=== PATIENT | female | born 1990 | race Caucasian/White ===

== ENCOUNTER 2016-07-23 21:53 | Emergency (ER) | payer BC ==
[2016-07-23 22:10] VITALS: RESP 16
[2016-07-23] MEDS ORDERED: SODIUM CHLORIDE 0.9% 1,000 ML IV ONE (22:13)
[2016-07-23] MEDS ORDERED: SODIUM CHLORIDE 0.9% 500 ML IV ONE (22:13)
[2016-07-23] MEDS ORDERED: METOCLOPRAMIDE 5 MG/ML 2 ML VIAL IVP STA (22:14)
--- NOTE | 2016-07-23 22:16 | ED ---
General Adult HPI - General Chief complaint: Nausea/Vomiting/Diarrhea Stated complaint: 13 weeks preg, dehydration, vomiting Time Seen by Provider: 07/23/16 22:00 Source: patient, RN notes reviewed Mode of arrival: ambulatory Limitations: no limitations - History of Present Illness Initial comments: This is a 26-year-old female who is a patient states she is 13 weeks . Patient states she's having a lot of nausea and vomiting with the which she did not have previous . Patient states she's barely keeping anything down. Patient states she has Zofran at home but is unable to keep it down. Patient states she is eating and drinking every day at some point in time without vomiting but the rest of the day she spends vomiting. Patient denies any abdominal pain. Patient denies any vaginal bleeding or discharge. Patient denies any recent fever or chills. Patient denies any headache patient denies numbness weakness patient denies any lightheadedness or dizziness. Patient denies any difficulty breathing shortness of breath. Patient denies any leg swelling or calf tenderness. - Related Data Home Medications Medication Instructions Recorded Confirmed Ondansetron HCl [Zofran] 4 mg PO Q8H PRN 07/23/16 07/23/16 Pnv with Ca,No.72/Iron/FA 1 tab PO DAILY 07/23/16 07/23/16 [ Plus Tablet] Previous Rx's Medication Instructions Recorded Metoclopramide [Reglan] 10 mg PO Q6H PRN 10 Days 07/23/16 Allergies Allergy/AdvReac Type Severity Reaction Status Date / Time Milk Containing Products Allergy Unknown Verified 07/23/16 22:15 [Dairy] Review of Systems ROS Statement: Those systems with pertinent positive or pertinent negative responses have been documented in the HPI. ROS Other: All systems not noted in ROS Statement are negative. Past Medical History Past Medical History: Asthma History of Any Multi-Drug Resistant Organisms: None Reported Past Surgical History: No Surgical Hx Reported Additional Past Surgical History / Comment(s): left knee times 2, nose surgery Past Psychological History: Anxiety, Depression Smoking Status: Never smoker Past Alcohol Use History: Occasional Past Drug Use History: None Reported General Exam - General Exam Comments Initial Comments: GENERAL: Patient is well-developed and well-nourished. Patient is nontoxic and well- hydrated and is in mild distress. ENT: Neck is soft and supple. No significant lymphadenopathy is noted. Oropharynx is clear. Dry mucous membranes. Neck has full range of motion without eliciting any pain. EYES: The sclera were anicteric and conjunctiva were pink and moist. Extraocular movements were intact and pupils were equal round and reactive to light. Eyelids were unremarkable. PULMONARY: Unlabored respirations. Good breath sounds bilaterally. No audible rales rhonchi or wheezing was noted. CARDIOVASCULAR: There is a regular rate and rhythm without any murmurs gallops or rubs. ABDOMEN: Soft and nontender with normal bowel sounds. No palpable organomegaly was noted. There is no palpable pulsatile mass. SKIN: Skin is clear with no lesions or rashes and otherwise unremarkable. NEUROLOGIC: Patient is alert and oriented x3. Cranial nerves II through XII are grossly intact. Motor and sensory are also intact. Normal speech, volume and content. Symmetrical smile. MUSCULOSKELETAL: Normal extremities with adequate strength and full range of motion. No lower extremity swelling or edema. No calf tenderness. LYMPHATICS: No significant lymphadenopathy is noted PSYCHIATRIC: Normal psychiatric evaluation. Limitations: no limitations Course Vital Signs 07/23/16 07/23/16 22:07 22:52 Temperature 98.2 F 97.9 F Pulse Rate 83 76 Respiratory 16 16 Rate Blood Pressure 130/84 112/56 O2 Sat by Pulse 97 96 Oximetry Medical Decision Making - Medical Decision Making I went back into reevaluate the patient she received a liter and a half of fluid and she states she was no longer nauseated. - Lab Data Result diagrams: 07/23/16 22:32 07/23/16 22:32 Lab Results 07/23/16 07/23/16 Range/Units 22:32 22:32 WBC 8.6 (3.8-10.6) k/uL RBC 4.52 (3.80-5.40) m/uL Hgb 13.4 (11.4-16.0) gm/dL Hct 39.0 (34.0-46.0) % MCV 86.2 (80.0-100.0) fL MCH 29.6 (25.0-35.0) pg MCHC 34.4 (31.0-37.0) g/dL RDW 13.3 (11.5-15.5) % Plt Count 229 (150-450) k/uL Neutrophils % 73 % Lymphocytes % 22 % Monocytes % 4 % Eosinophils % 1 % Basophils % 0 % Neutrophils # 6.2 (1.3-7.7) k/uL Lymphocytes # 1.9 (1.0-4.8) k/uL Monocytes # 0.3 (0-1.0) k/uL Eosinophils # 0.1 (0-0.7) k/uL Basophils # 0.0 (0-0.2) k/uL Sodium 139 (137-145) mmol/L Potassium 3.9 (3.5-5.1) mmol/L Chloride 103 (98-107) mmol/L Carbon Dioxide 22 (22-30) mmol/L Anion Gap 14 mmol/L BUN 7 (7-17) mg/dL Creatinine 0.58 (0.52-1.04) mg/dL Est GFR (MDRD) Af Amer >60 (>60 ml/min/1.73 sqM) Est GFR (MDRD) Non-Af >60 (>60 ml/min/1.73 sqM) Glucose 91 (74-99) mg/dL Calcium 9.7 (8.4-10.2) mg/dL Total Bilirubin 0.5 (0.2-1.3) mg/dL AST 15 (14-36) U/L ALT 28 (9-52) U/L Alkaline Phosphatase 97 (38-126) U/L Total Protein 7.8 (6.3-8.2) g/dL Albumin 4.3 (3.5-5.0) g/dL Disposition Clinical Impression: Hyperemesis gravidarum Disposition: HOME SELF-CARE Instructions: Hyperemesis Gravidarum (ED) Prescriptions: Metoclopramide [Reglan] 10 mg PO Q6H PRN 10 Days PRN Reason: Nausea And Vomiting Referrals: Jayla Ryan MD [Primary Care Provider] - 1-2 days Time of Disposition: 23:38
[2016-07-23 22:42] LABS: Basophils % (A) 0 %; CH 30.8; CHCM 35.9; Eosinophils # (A) 0.1 k/uL (0-0.7); Eosinophils % (A) 1 %; HDW 2.87; HGB 13.4 gm/dL (11.4-16.0); Luc # (Auto) 0.06; Luc % (Auto) 1; Lymphocytes # (A) 1.9 k/uL (1.0-4.8); Lymphocytes % (A) 22 %; MCH 29.6 pg (25.0-35.0); MCHC 34.4 g/dL (31.0-37.0); MCV 86.2 fL (80.0-100.0); Mean Platelet Volume 7.7; Monocytes # (A) 0.3 k/uL (0-1.0); Monocytes % (A) 4 %; Neutrophils # (A) 6.2 k/uL (1.3-7.7); Neutrophils % (A) 73 %; RBC 4.52 m/uL (3.80-5.40); RDW 13.3 % (11.5-15.5); WBC 8.6 k/uL (3.8-10.6); WBC (Perox) 8.58
[2016-07-23 22:51] LABS: ALT 28 U/L (9-52); AST 15 U/L (14-36); Alkaline Phosphatase 97 U/L (38-126); Anion Gap 14 mmol/L; Blood Urea Nitrogen 7 mg/dL (7-17); Calcium 9.7 mg/dL (8.4-10.2); Carbon Dioxide 22 mmol/L (22-30); Chloride 103 mmol/L (98-107); Glucose 91 mg/dL (74-99); Non-African American GFR(MDRD) >60 (>60 ml/min/1.73 sqM); Potassium 3.9 mmol/L (3.5-5.1); Sodium 139 mmol/L (137-145); Total Bilirubin 0.5 mg/dL (0.2-1.3); Total Protein 7.8 g/dL (6.3-8.2)
[2016-07-23 23:51] VITALS: BP 112/54; PULSE 77; TEMP 97
== END 2016-07-24 00:05 | disposition home or self-care (01) ==
LOC: EC 21:53
DX: O21.0 Mild hyperemesis gravidarum (principal); Z3A.13 13 weeks gestation of pregnancy; Z91.011 Allergy to milk products
CPT/HCPCS: 36415; 80053; 85025; 99284; 96374; 96361; J2765

== ENCOUNTER 2016-11-04 14:50 | Outpatient (CLI) | payer BC ==
[2016-11-04 16:19] VITALS: BP 127/74; PULSE 74; RESP 16; TEMP 97.4
== END 2016-11-04 16:05 | disposition home or self-care (01) ==
LOC: FBPOP 14:50
PROVIDERS: ATTEND Obstetrics & Gynecology
DX: O36.8130 Decreased fetal movements, third trimester, not applicable or unspecified (principal); R10.9 Unspecified abdominal pain; Z3A.28 28 weeks gestation of pregnancy
CPT/HCPCS: 59025; 99213

== ENCOUNTER 2017-01-17 17:44 | Outpatient (CLI) | payer BC ==
[2017-01-17 18:55] VITALS: BP 126/86; PULSE 77; RESP 18; TEMP 97.6
--- NOTE | 2017-01-25 14:59 | P.MSEPDOC ---
Presenting Problems - Arrival Data Date of Arrival on Unit: 01/17/17 Time of Arrival on Unit: 17:44 Mode of Transport: Wheelchair - Complaint OB-Reason for Admission/Chief Complaint: Possible Onset of Labor, Rule Out SROM Medical History - Information : 2 Para: 1 Term: 1 : 0 Abortions: Spontaneous or Elective: 0 Number of Living Children: 1 - Gestational Age Expected Date of Delivery: 01/26/17 Gestational Age by LISET (wks/days): 39 Weeks and 6 Days Review of Systems - Review of Systems Constitutional: No problems Breast: No problems ENT: No problems Cardiovascular: No problems Respiratory: No problems Gastrointestinal: No problems Genitourinary: No problems Musculoskeletal: No problems Neurological: No problems Skin: No problems Vital Signs - Temperature Temperature: 97.6 F Temperature Source: Oral - Pulse Right Brachial Pulse Rate: 77 Pulse Assessment Method: Automatic Cuff - Respirations Respiratory Rate: 18 Oxygen Delivery Method: Room Air O2 Sat by Pulse Oximetry: 98 - Blood Pressure Right Arm Blood Pressure: 126/86 Blood Pressure Mean: 99 Blood Pressure Source: Automatic Cuff Medical Screen Scoring (Pre) - Cervical Exam Dilation: 1-3 cm = 1 Membranes: Intact - Uterine Contractions Frequency: > 5 minutes apart = 1 Duration: N/A Intensity: N/A - Maternal Vital Signs Maternal Temperature: N/A Maternal Blood Pressure: N/A Signs of Preeclampsia: N/A Maternal Respirations: N/A - Maternal Trauma Maternal Trauma: N/A - Assessment Baseline FHR: 130 Heart Rate - NICHD Category: Category I (Normal) = 0 NST: Reactive Position: N/A - Total Score Total Score (Pre): 2 - Level of Risk Level of Risk: Low (0-5) Physician Notification (Pre) - Physician Notified Physician Notified Date: 01/17/17 Physician Notified Time: 18:27 Physician/Practitioner Notifed:: Dr. Ortega Spoke With: Dr. Ortega New Order Received: Yes (D/c pt to home) - Notification Comment Comment: notified on pt status, negative amnisure results, and vag exam 3cm and 60%. Physician Notification (Post) - Physician Notified Physician Notified Date: 01/17/17 Physician Notified Time: 18:27 Physician/Practitioner Notified:: Dr. Ortega Spoke With: Dr. Ortega New Order Received: Yes (D/c to home) Disposition - Disposition OB Disposition: Discharge to home Discharge Date: 01/17/17 Discharge Time: 18:35 I agree with the RN Medical Screening Exam: Yes Risk & Benefit of care provided described in d/c instruction: Yes Diagnosis: FALSE LABOR AT OR AFTER 37 COMPLETED WEEKS OF GESTATION
== END 2017-01-17 18:35 | disposition home or self-care (01) ==
LOC: FBPOP 17:44
PROVIDERS: ATTEND Obstetrics & Gynecology
DX: O47.1 False labor at or after 37 completed weeks of gestation (principal); Z3A.39 39 weeks gestation of pregnancy
CPT/HCPCS: 99213

== ENCOUNTER 2017-01-21 05:56 | Inpatient (IN) | payer BC, OTHER ==
[2017-01-21] MEDS ORDERED: CARBOPROST TROMETHAMINE 250 MCG/ML 1 ML AMP IM PRN (06:03)
[2017-01-21] MEDS ORDERED: PENICILLIN G POTASSIUM 5,000,000 UNIT in DEXTROSE 5% IN WATER 100 ML IV STA ×2 (06:03)
[2017-01-21] MEDS ORDERED: TERBUTALINE 1 MG/ML VIAL SQ PRN (06:03)
[2017-01-21] MEDS ORDERED: METHYLERGONOVINE 0.2 MG/ML 1 ML AMP IM PRN (06:03)
[2017-01-21] MEDS ORDERED: LIDOCAINE 1% (PF) 10 MG/ML (30 ML SDV) SQ PRN (06:03)
[2017-01-21] MEDS ORDERED: OXYTOCIN 10 UNIT/ML 1 ML VIAL IM PRN (06:03)
[2017-01-21 06:18] VITALS: BMI 32.1
[2017-01-21] MEDS: LACTATED RINGERS 1,000 ML IV SCH ×2 (06:33→21:33)
[2017-01-21 06:36] LABS: Basophils % (A) 0 %; CH 29.2; CHCM 34.5; Eosinophils # (A) 0.1 k/uL (0-0.7); Eosinophils % (A) 1 %; HCT 34.9 % (34.0-46.0); HDW 2.92; HGB 11.7 gm/dL (11.4-16.0); Luc # (Auto) 0.17; Luc % (Auto) 2; Lymphocytes # (A) 1.9 k/uL (1.0-4.8); Lymphocytes % (A) 21 %; MCH 28.5 pg (25.0-35.0); MCHC 33.5 g/dL (31.0-37.0); MCV 84.9 fL (80.0-100.0); Mean Platelet Volume 9.9; Monocytes # (A) 0.5 k/uL (0-1.0); Monocytes % (A) 5 %; Neutrophils # (A) 6.3 k/uL (1.3-7.7); Neutrophils % (A) 71 %; RBC 4.11 m/uL (3.80-5.40); RDW 15.2 % (11.5-15.5); WBC 8.9 k/uL (3.8-10.6); WBC (Perox) 8.86
[2017-01-21] MEDS ORDERED: OXYTOCIN 20 UNITS/1000 ML NS 1,000 ML IV SCH (06:45)
--- NOTE | 2017-01-21 08:29 | P.HPOB ---
History of Present Illness H&P Date: 01/21/17 Chief Complaint: Here for elective induction of labor with favorable multiparous cervix This is a 26-year-old white female 2 para 1001 EDC 01/26/2017 at 39-2/7 weeks' gestation. Patient presents today for induction of labor. She has been having mild irregular uterine contractions spontaneously. Fetus is been active throughout the . She denies fluid leakage or vaginal bleeding. Past medical history is significant for anxiety and depression. She has a history of asthma, on no meds. Past surgical history significant for left knee surgery and broken nose repair. Current medications Zofran 4 mg as needed, vitamin daily. ALLERGIES include gluten to which reports migraines, NO KNOWN DRUG ALLERGIES. Family history significant for thyroid cancer and hypertension. 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 Past obstetrical history is significant for positive group B strep cultures. Blood type O positive, rubella status immune. VDRL testing, hepatitis B surface antigen, urine culture, Pap smear all negative. On exam this is a pleasant white female, 5 foot 5 inches, 193 pounds, vital signs are stable and patient is afebrile. Blood pressure 127/84. The general physical exam is within normal limits. Cervix is 4 cm dilated, 60-70% effaced, -2 station, vertex presentation. Artificial amniorrhexis reveals clear fluid. heart rate is in the 140s with frequent accelerations, consistent with reactive NST. Impression: 39-2/7 weeks intrauterine , here for elective induction of labor, all signs reassuring. Plan: Close maternal and surveillance. Analgesic options are reviewed with the patient. Oxytocin per hospital protocol. Anticipate normal spontaneous vaginal delivery. Past Medical History Past Medical History: Asthma, Thyroid Disorder Additional Past Medical History / Comment(s): Anxiety and depression, Hypothyroid (not currently on meds, states it's controlled at this time, but has been diagnosed with it in the past) History of Any Multi-Drug Resistant Organisms: None Reported Past Surgical History: No Surgical Hx Reported Additional Past Surgical History / Comment(s): left knee times 2, nose surgery Past Anesthesia/Blood Transfusion Reactions: No Reported Reaction Past Psychological History: Anxiety, Depression Smoking Status: Never smoker Past Alcohol Use History: None Reported, Occasional Past Drug Use History: None Reported - Past Family History Mother Family Medical History: Hypertension Father Family Medical History: Hyperlipidemia Medications and Allergies Home Medications Medication Instructions Recorded Confirmed Type Pnv,Calcium 72/Iron/Folic Acid 1 tab PO DAILY 07/23/16 01/21/17 History [ Plus Tablet] Allergies Allergy/AdvReac Type Severity Reaction Status Date / Time Milk Containing Products Allergy Unknown Verified 01/21/17 06:02 [Dairy] Exam - Vital Signs Vital signs: Vital Signs Temp Pulse Resp BP 01/21/17 06:12 96.6 F L 89 16 127/84 Intake and Output 01/20/17 01/21/17 01/21/17 22:59 06:59 14:59 Other: Weight 87.543 kg Results Result Diagrams: 01/21/17 06:20
[2017-01-21] MEDS: PENICILLIN G POTASSIUM 2,500,000 UNIT in DEXTROSE 5% IN WATER 100 ML IV SCH ×4 (11:19→21:35)
[2017-01-21] MEDS ORDERED: BUTORPHANOL 1 MG/ML 1 ML VIAL IV PRN (12:06)
[2017-01-21] MEDS ORDERED: ACETAMINOPHEN TAB 325 MG TAB PO PRN (14:10)
[2017-01-21] MEDS ORDERED: IBUPROFEN 600 MG TAB PO PRN (14:10)
[2017-01-21] MEDS ORDERED: diphenhydrAMINE 50 MG/ML 1 ML VIAL IVP PRN ×2 (14:10)
[2017-01-21] MEDS ORDERED: BENZOCAINE/MENTHOL SPRAY 1 GM/SPRAY AEROSOL TOPICAL PRN (14:10)
[2017-01-21] MEDS ORDERED: diphenhydrAMINE 25 MG CAP PO PRN (14:10)
[2017-01-21] MEDS ORDERED: WITCH HAZEL 1 EACH MED..PAD TOPICAL PRN (14:10)
[2017-01-21] MEDS ORDERED: Acetaminophen-Codeine 300-30mg TAB PO PRN (14:10)
[2017-01-21] MEDS ORDERED: HYDROCORTISONE 2.5% RECTAL CREAM 30 GM TUBE RECTAL PRN (14:10)
[2017-01-21] MEDS ORDERED: LANOLIN CREAM 5 GM TUBE TOPICAL PRN (14:10)
[2017-01-21] MEDS ORDERED: SIMETHICONE 80 MG CHEWABLE PO PRN (14:10)
[2017-01-21] MEDS ORDERED: ZOLPIDEM 5 MG TAB PO PRN (14:10)
[2017-01-21] MEDS ORDERED: diphenhydrAMINE 50 MG CAP PO PRN (14:10)
[2017-01-21] MEDS ORDERED: diphenhydrAMINE ELIXIR 25 MG/10 ML CUP PO PRN (14:10)
--- NOTE | 2017-01-21 14:10 | P.PROBDLV ---
Vaginal Delivery Note - . Vaginal Delivery Note: This is a 26-year-old white female 2 para 1001 EDC 01/26/2017 at 39-2/7 weeks' gestation. Patient presented for induction for favorable multiparous cervix. Positive group B strep cultures are noted. Blood type is O+, rubella status immune. Please see my dictated history and physical for details. Artificial amniorrhexis revealed clear fluid. Oxytocin was started and titrated per hospital protocol. She did receive 2 doses of penicillin G per our protocol. She progressed well through the first stage of labor was judged to be complete at 1351 hrs. She then precipitously delivered a liveborn male infant with scores of 9 and 9 at one and 5 minutes respectively. There was a body cord 1 that was reduced. Per patient's request, delayed cord clamping was performed. When the pulse in the umbilical cord was completely gone, the cord was doubly clamped and ligated. Infant weighed 6 lbs. 11 oz. or 3045 g. Placenta delivered spontaneously, it was inspected and noted to be intact with trivascular cord at 1359 hrs. At this time inspection of the cervix, vagina, perineum, periurethral, and perirectal areas was performed. There are no lacerations or defects noted. Fundus is firm and in the midline, symmetric and 16 week size upon completion of delivery. Estimated blood loss 350 mL's. All sponge needle and enhancement counts are correct at the end of the procedure. Patient and her family are allowed to begin the bonding experience in the LDR. She is requesting circumcision on her infant son.
[2017-01-21] MEDS: SENNOSIDES-DOCUSATE SODIUM 1 EACH TAB PO SCH (19:38)
[2017-01-22] MEDS: SENNOSIDES-DOCUSATE SODIUM 1 EACH TAB PO SCH (07:45)
[2017-01-22 08:17] VITALS: RESP 18
--- NOTE | 2017-01-22 08:26 | P.DS ---
Providers Date of admission: 01/21/17 05:56 Expected date of discharge: 01/22/17 Attending physician: Adri Castro Primary care physician: Jayla [facility] Course: This is a 26-year-old white female 2 para 1001 EDC 01/26/2017 at 39-2/7 weeks' gestation. Patient presented for induction with favorable multiparous cervix. unremarkable, please see my dictated history and physical for details. Blood type O positive. Artificial amniorrhexis revealed clear fluid. Oxytocin was started and titrated per hospital protocol. She went on to deliver a liveborn male with scores of 9 and 9 at one and 5 minutes respectively. Infant weight 3045 g or 6 lbs. 11 oz. Perineal body was intact, no sutures were deemed necessary. Please see dictated delivery note for details. This morning the patient is doing well. She is voiding, ambulating and passing flatus without difficulty. Vital signs are stable and she is afebrile. Fundus is firm and in the midline, symmetric and 18 week size. Breast-feeding is going well. Circumcision will be performed this morning. Perineal body is clean and dry. Plan is for discharge home later today. She is reminded no intercourse, tampons or douching. She will continue taking her vitamin daily. She will use [id number] Motrin products as needed for pain, 200 mg pills, 3 every 6 hours as needed. She will call with any fevers shakes or chills, foul smelling or copious lochia, with the passage of large blood clots, with any pain not alleviated by Motrin products, or indeed with any concerns. will follow-up with fibreglass gun hand as recommended. Patient Condition at Discharge: Good Plan - Discharge Summary New Discharge Prescriptions: No Action Pnv,Calcium 72/Iron/Folic Acid [ Plus Tablet] 1 tab PO DAILY Discharge Medication List Pnv,Calcium 72/Iron/Folic Acid [ Plus Tablet] 1 tab PO DAILY 07/23/16 [ History] Follow up Appointment(s)/Referral(s): Adri Castro MD [STAFF PHYSICIAN] - 6 Weeks Discharge Disposition: HOME SELF-CARE
[2017-01-22 18:10] VITALS: BP 122/83; PULSE 77; TEMP 98.4
== END 2017-01-22 18:00 | disposition home or self-care (01) | DRG 775 ==
LOC: 4FBP 05:56
PROVIDERS: ADMIT Obstetrics & Gynecology; ATTEND Obstetrics & Gynecology
PROC: 3E033VJ Introduction of Other Hormone into Peripheral Vein, Percutaneous Approach (ICD-10-PCS; principal; 2017-01-21)
PROC: 10907ZC Drainage of Amniotic Fluid, Therapeutic from Products of Conception, Via Natural or Artificial Opening (ICD-10-PCS; principal; 2017-01-21)
PROC: 10E0XZZ Delivery of Products of Conception, External Approach (ICD-10-PCS; principal; 2017-01-21)
DX: O99.824 Streptococcus B carrier state complicating childbirth (principal); O62.3 Precipitate labor; Z37.0 Single live birth; Z3A.39 39 weeks gestation of pregnancy
CPT/HCPCS: 85025; 88307

== ENCOUNTER → 2017-07-30 | Outpatient (CLI) | payer BC, OTHER ==
[2017-07-30 19:19] LABS: Basophils % (A) 1 %; Eosinophils # (A) 0.3 k/uL (0-0.7); Eosinophils % (A) 5 %; HCT 42.7 % (34.0-46.0); HGB 14.2 gm/dL (11.4-16.0); Lymphocytes # (A) 2.4 k/uL (1.0-4.8); Lymphocytes % (A) 34 %; MCH 29.6 pg (25.0-35.0); MCHC 33.3 g/dL (31.0-37.0); MCV 88.8 fL (80.0-100.0); Mean Platelet Volume 7.6; Monocytes # (A) 0.3 k/uL (0-1.0); Monocytes % (A) 5 %; Neutrophils # (A) 3.7 k/uL (1.3-7.7); Neutrophils % (A) 54 %; Platelet Count 220 k/uL (150-450); RDW 13.9 % (11.5-15.5); WBC 6.8 k/uL (3.8-10.6)
[2017-07-30 19:21] LABS: ALT 25 U/L (9-52); AST 22 U/L (14-36); Albumin 4.7 g/dL (3.5-5.0); Alkaline Phosphatase 122 U/L (38-126); Anion Gap 15 mmol/L; Blood Urea Nitrogen 13 mg/dL (7-17); Calcium 9.7 mg/dL (8.4-10.2); Carbon Dioxide 27 mmol/L (22-30); Chloride 102 mmol/L (98-107); Cholesterol 210 mg/dL (<200); Glucose 77 mg/dL (74-99); HDL Cholesterol 49 mg/dL (40-60); LDL Cholesterol,Calculated 141 mg/dL (0-99); Potassium 4.2 mmol/L (3.5-5.1); Sodium 144 mmol/L (137-145); Total Bilirubin 0.4 mg/dL (0.2-1.3); Total Protein 8.1 g/dL (6.3-8.2); Triglycerides 99 mg/dL (<150)
[2017-07-30 19:36] LABS: T4, Free (Free Thyroxine) 1.21 ng/dL (0.78-2.19)
== END | disposition home or self-care (01) ==
LOC: MMGSC 10:48
PROVIDERS: ATTEND Family Medicine
DX: Z00.00 Encounter for general adult medical examination without abnormal findings (principal)
CPT/HCPCS: 36415; 80053; 80061; 84439; 84443; 85025

== ENCOUNTER 2018-05-14 08:53 | Emergency (ER) | payer BC, OTHER ==
[2018-05-14 09:02] VITALS: RESP 18
--- NOTE | 2018-05-14 09:31 | ED ---
Female Urogenital HPI - General Chief complaint: Vaginal Bleeding Stated complaint: 9 1/2 weeks and spotting Time Seen by Provider: 05/14/18 09:10 Source: patient, RN notes reviewed Mode of arrival: ambulatory Limitations: no limitations - History of Present Illness Initial comments: This is a 28-year-old female A0 currently 9 and a half weeks presents emergency Department with chief complaint of spotting. Patient states that she started spotting last night bright red blood and states only when she wipes. She does have mild left lower quadrant cramping. Denies any diarrhea, constipation, dysuria, urinary frequency. She has an going nausea and intermittent vomiting which is not out of the usual for her. Patient states she 's had this throughout her other pregnancies. 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 Patient states that she has not had an ultrasound for this in the seat. Patient denies any fever, chills, chest pain or shortness breath. - Related Data Home Medications Medication Instructions Recorded Confirmed Pnv,Calcium 72/Iron/Folic Acid 1 tab PO DAILY 07/23/16 05/14/18 [ Plus Tablet] Dha 1 tab PO DAILY 05/14/18 05/14/18 Allergies Allergy/AdvReac Type Severity Reaction Status Date / Time Milk Containing Products Allergy Unknown Verified 05/14/18 10:07 [Dairy] Review of Systems ROS Statement: Those systems with pertinent positive or pertinent negative responses have been documented in the HPI. ROS Other: All systems not noted in ROS Statement are negative. Past Medical History Past Medical History: Asthma, Thyroid Disorder Additional Past Medical History / Comment(s): Anxiety and depression, Hypothyroid (not currently on meds, states it's controlled at this time, but has been diagnosed with it in the past) History of Any Multi-Drug Resistant Organisms: None Reported Past Surgical History: No Surgical Hx Reported Additional Past Surgical History / Comment(s): left knee times 2, nose surgery Past Anesthesia/Blood Transfusion Reactions: No Reported Reaction Past Psychological History: Anxiety, Depression Smoking Status: Never smoker Past Alcohol Use History: Occasional Past Drug Use History: None Reported - Past Family History Mother Family Medical History: Hypertension Father Family Medical History: Hyperlipidemia General Exam Limitations: no limitations General appearance: alert, in no apparent distress Head exam: Present: atraumatic, normocephalic, normal inspection Respiratory exam: Present: normal lung sounds bilaterally. Absent: respiratory distress, wheezes, rales, rhonchi, stridor Cardiovascular Exam: Present: regular rate, normal rhythm, normal heart sounds. Absent: systolic murmur, diastolic murmur, rubs, gallop, clicks GI/Abdominal exam: Present: soft, tenderness (Minimal left lower quadrant), normal bowel sounds. Absent: distended, guarding, rebound, rigid Back exam: Absent: CVA tenderness (R), CVA tenderness (L) Skin exam: Present: warm, dry, intact, normal color. Absent: rash Course Vital Signs 05/14/18 05/14/18 09:00 11:20 Temperature 98.3 F 97.8 F Pulse Rate 78 68 Respiratory 18 18 Rate Blood Pressure 135/88 118/80 O2 Sat by Pulse 98 99 Oximetry Medical Decision Making - Medical Decision Making 28 show female presented emergency department for vaginal bleeding in early . Ultrasound, lab work were obtained. Patient is O+ blood type. Patient will be discharged with threatened miscarriage. - Lab Data Result diagrams: 05/14/18 09:25 Lab Results 05/14/18 05/14/18 05/14/18 Range/Units 09:20 09:25 09:25 WBC 7.2 (3.8-10.6) k/uL RBC 4.53 (3.80-5.40) m/uL Hgb 13.2 (11.4-16.0) gm/dL Hct 39.6 (34.0-46.0) % MCV 87.5 (80.0-100.0) fL MCH 29.2 (25.0-35.0) pg MCHC 33.4 (31.0-37.0) g/dL RDW 14.1 (11.5-15.5) % Plt Count 251 (150-450) k/uL Neutrophils % 66 % Lymphocytes % 26 % Monocytes % 4 % Eosinophils % 1 % Basophils % 0 % Neutrophils # 4.8 (1.3-7.7) k/uL Lymphocytes # 1.9 (1.0-4.8) k/uL Monocytes # 0.3 (0-1.0) k/uL Eosinophils # 0.1 (0-0.7) k/uL Basophils # 0.0 (0-0.2) k/uL Urine Color Yellow Urine Appearance Cloudy H (Clear) Urine pH 7.5 (5.0-8.0) Ur Specific [place] 1.014 (1.001-1.035) Urine Protein Negative (Negative) Urine Glucose (UA) Negative (Negative) Urine Ketones Negative (Negative) Urine Blood Negative (Negative) Urine Nitrite Negative (Negative) Urine Bilirubin Negative (Negative) Urine Urobilinogen <2.0 (<2.0) mg/dL Ur Leukocyte Esterase Large H (Negative) Urine WBC 5 (0-5) /hpf Ur Squamous Epith Cells 9 H (0-4) /hpf Urine Bacteria Occasional H (None) /hpf Urine Mucus Few H (None) /hpf Blood Type O Positive Blood Type Recheck No Disposition Clinical Impression: Threatened miscarriage Disposition: HOME SELF-CARE Condition: Stable Instructions: Threatened Miscarriage (ED) Additional Instructions: Please return to the Emergency Department if symptoms worsen or any other concerns. Is patient prescribed a controlled substance at d/c from ED?: No Referrals: Jayla Ryan MD [Primary Care Provider] - 1-2 days Time of Disposition: 12:02
--- NOTE | 2018-05-14 10:54 | US ---
EXAMINATION TYPE: Ultrasound OB <= 14 weeks transvaginal DATE OF EXAM: 05/14/2018 COMPARISON: NONE CLINICAL HISTORY: 28-year-old female with Pain. EXAM PERFORMED: Transvaginal (TV) and Transabdominal (TA) FINDINGS: EXAM MEASUREMENTS: GESTATIONAL AGE / DATING Physician Established: Not yet established Dates by LMP: ( 8weeks/4 days) EDC: 12/20/17 Dates by First Scan: No previous this is first scan Dates by Current Scan for: (7 weeks/1 days +/- 5 days) EDC: 12/30/17 MATERNAL ANATOMY Uterus: 10.8 x 5.9 x 7.0cm Right Ovary: 2.5 x 2.4 x 2.9cm Left Ovary: 3.2 x 2.2 x 2.2cm Follicular change in the ovaries. Post CDS / Adnexa: wnl Presence of free fluid: no Presence of subchorionic bleed: no GESTATION / SURVEY CRL: 1.0cm (7 weeks/1 days) Yolk Sac (normal less than 6mm): 3mm Heart Rate: 146 bpm Rhythm: Normal IUP: Viable IUP Date of LMP: 03/15/18 Beta HcG (if available): Not available at this time IMPRESSION: 1. Single live intrauterine with estimated gestational age of 8 weeks 4 days by LMP. Curren t ultrasound biometry is smaller and discordant at 7 weeks 1 day. Correlate as to accuracy of recall of LMP. 2. Complete survey recommended at 18-20 weeks.
[2018-05-14 10:55] LABS: Basophils % (A) 0 %; Eosinophils # (A) 0.1 k/uL (0-0.7); Eosinophils % (A) 1 %; HCT 39.6 % (34.0-46.0); HGB 13.2 gm/dL (11.4-16.0); Lymphocytes # (A) 1.9 k/uL (1.0-4.8); Lymphocytes % (A) 26 %; MCH 29.2 pg (25.0-35.0); MCHC 33.4 g/dL (31.0-37.0); MCV 87.5 fL (80.0-100.0); Monocytes # (A) 0.3 k/uL (0-1.0); Monocytes % (A) 4 %; Neutrophils # (A) 4.8 k/uL (1.3-7.7); Neutrophils % (A) 66 %; Platelet Count 251 k/uL (150-450); RBC 4.53 m/uL (3.80-5.40); RDW 14.1 % (11.5-15.5); WBC 7.2 k/uL (3.8-10.6)
[2018-05-14 10:59] LABS: Appearance,Urine Cloudy (Clear); Bacteria,Urine Occasional /hpf; Bilirubin,Urine Negative (Negative); Blood,Urine Negative (Negative); Color,Urine Yellow; Glucose,Urine (UA) Negative (Negative); Ketones,Urine Negative (Negative); Leukocyte Esterase,Urine Large (Negative); Mucus,Urine Few /hpf; Nitrite,Urine Negative (Negative); PH, Urine 7.5 (5.0-8.0); Protein,Urine Negative (Negative); Specific Gravity,Urine 1.014 (1.001-1.035); Squamous Epithelial Cell,Urine 9 /hpf (0-4); Urobilinogen,Urine <2.0 mg/dL (<2.0)
[2018-05-14 11:21] VITALS: BP 118/80; PULSE 68; TEMP 97.8
== END 2018-05-14 12:09 | disposition home or self-care (01) ==
LOC: EC 08:53
DX: O20.0 Threatened abortion (principal); Z3A.01 Less than 8 weeks gestation of pregnancy; Z91.011 Allergy to milk products
CPT/HCPCS: 36415; 76801; 76817; 81001; 84702; 85025; 86900; 86901; 99284

== ENCOUNTER → 2018-07-02 | Day surgery (SDC) | payer BC ==
[2018-07-01 13:57] VITALS: BMI 34.1
[~2018-07-02] MED LIST: DEXAMETHASONE SOD PHOSPHATE 10 MG/ML 1 ML VIAL IV ONE; HYDROmorphone 0.5 MG/0.5 ML SYRINGE IVP PRN; KETAMINE 10 MG/ML 20 ML VIAL ONE; LACTATED RINGERS 1,000 ML IV SCH; LIDOCAINE 1% 20 ML VIAL (10MG/ML) FOR IV START INTRADERMA PRN; LIDOCAINE 1% INJ 10MG/ML (20 ML MDV) ONE; LIDOCAINE 1%-EPI 1:100,000 20 ML VIAL SQ ONE; MIDAZOLAM 2 MG/2 ML VIAL IV PRN; MIDAZOLAM 2 MG/2 ML VIAL ONE; ONDANSETRON 4 MG/2 ML VIAL IVP ONE; PROPOFOL 10 MG/ML 20 ML VIAL IV ONE; SCOPOLAMINE 1.5MG/72HR PATCH TRANSDERM ONE; fentaNYL (PF) 50 MCG/ML 2 ML AMP ONE
[2018-07-02 08:22] LABS: Basophils % (A) 0 %; Eosinophils # (A) 0.2 k/uL (0-0.7); Eosinophils % (A) 2 %; HCT 37.3 % (34.0-46.0); HGB 12.7 gm/dL (11.4-16.0); Lymphocytes # (A) 1.9 k/uL (1.0-4.8); Lymphocytes % (A) 28 %; MCH 29.5 pg (25.0-35.0); MCHC 34.1 g/dL (31.0-37.0); MCV 86.5 fL (80.0-100.0); Mean Platelet Volume 7.4; Monocytes # (A) 0.3 k/uL (0-1.0); Monocytes % (A) 4 %; Neutrophils # (A) 4.4 k/uL (1.3-7.7); Neutrophils % (A) 64 %; Platelet Count 200 k/uL (150-450); RBC 4.31 m/uL (3.80-5.40); RDW 13.7 % (11.5-15.5); WBC 6.9 k/uL (3.8-10.6)
--- NOTE | 2018-07-02 09:42 | P.OP ---
Date of Procedure: 07/02/18 Preoperative Diagnosis: Missed Postoperative Diagnosis: Same Procedure(s) Performed: Suction dilation and curettage Anesthesia: MAC Surgeon: Esme Ortega Estimated Blood Loss (ml): 15 IV fluids (ml): 800 Urine output (ml): 100 Pathology: none sent Condition: stable Disposition: PACU Indications for Procedure: Missed at 10 weeks Operative Findings: Uterus sounding to 14 cm. Cervix dilated 2 cm. Description of Procedure: After the patient and her were met in the preoperative holding area and all questions were answered, she is to the operating room where anesthetic was administered without incident. She was in positioned, prepped and draped in the dorsal high lithotomy position. Bimanual examination was performed and the uterus was approximately 12 weeks' size. Bladder was drained for 100 mL of clear urine. Single-sided speculum was placed in the vagina and the cervix was grasped anteriorly with a single-tooth tenaculum. Paracervical block with lidocaine plus epinephrine was placed. Uterus was sounded to 14 cm. Cervix was already 2 cm dilated. A 10-Syriac curved suction curette was then introduced and suction curettage was undertaken. Appropriate products of conception were obtained. Pass a sharp banjo curette was undertaken and no additional tissue was obtained. The curettes were removed from the cervix and the cervix was observed. No active bleeding was noted. Instruments removed from the vagina. Per the patient's request on the on the products of conception were not sent to pathology. They were prepared for the patient to take home for personal attention. Of note her record has been inspected and she has no known history of infectious disease specifically negative testing for hepatitis B and HIV. She has no risk factors for hepatitis C.
[2018-07-02 09:53] VITALS: TEMP 97
[2018-07-02 10:18] VITALS: RESP 16
[2018-07-02 11:25] VITALS: BP 117/82; PULSE 62
== END | disposition home or self-care (01) ==
LOC: OR 07:11
PROVIDERS: ATTEND Obstetrics & Gynecology
DX: O02.1 Missed abortion (principal); Z3A.10 10 weeks gestation of pregnancy
CPT/HCPCS: 86900; 86901; 85025; 86850; 59820; J2250; J1100; J2405; J2001; J3010; J2704

== ENCOUNTER → 2018-11-12 | Outpatient (CLI) | payer BC ==
[2018-11-12 12:17] LABS: HCT 39.3 % (34.0-46.0); HGB 13.1 gm/dL (11.4-16.0); MCHC 33.3 g/dL (31.0-37.0); MCV 84.2 fL (80.0-100.0); Mean Platelet Volume 7.4; Platelet Count 230 k/uL (150-450); RBC 4.66 m/uL (3.80-5.40); RDW 15.4 % (11.5-15.5); WBC 8.3 k/uL (3.8-10.6)
[2018-11-12 19:32] LABS: HCG,Quantitative Serum <2.0 mIU/mL
[2018-11-12 19:40] LABS: ALT 19 U/L (8-44); AST 19 U/L (13-35); Albumin/Globulin Ratio 1.92 (1.60-3.17); Alkaline Phosphatase 108 U/L (41-126); Calcium 9.3 mg/dL (8.7-10.3); Carbon Dioxide 25.3 mmol/L (21.6-31.8); Chloride 104 mmol/L (96-109); Cholesterol 201 mg/dL (0-200); Globulin 2.4 g/dL (1.6-3.3); Glucose 82 mg/dL (70-110); LDL Cholesterol,Calculated 126.8 mg/dL (0.0-131.0); Potassium 4.2 mmol/L (3.5-5.5); Sodium 139 mmol/L (135-145); Total Bilirubin 0.5 mg/dL (0.3-1.2)
== END | disposition home or self-care (01) ==
LOC: LABWHC1 10:41
PROVIDERS: ATTEND Family Medicine
DX: Z00.00 Encounter for general adult medical examination without abnormal findings (principal)
CPT/HCPCS: 36415; 80053; 80061; 84439; 84443; 84702; 85027

== ENCOUNTER → 2018-11-20 | Outpatient (CLI) | payer BC | END | disposition home or self-care (01) | LOC: LABWHC1 11:14 | PROVIDERS: ATTEND Family Medicine | DX: Z32.00 Encounter for pregnancy test, result unknown (principal) | CPT/HCPCS: 36415; 84702; 84703 ==

== ENCOUNTER 2019-05-03 11:12 | Outpatient (CLI) | payer BC ==
[2019-05-03 12:57] VITALS: BP 137/80; PULSE 100; RESP 20; TEMP 97.6
--- NOTE | 2019-06-13 11:17 | P.MSEPDOC ---
Presenting Problems - Arrival Data Date of Arrival on Unit: 05/03/19 Time of Arrival on Unit: 11:12 Mode of Transport: Ambulatory - Complaint OB-Reason for Admission/Chief Complaint: Other Comment: pt arrived c/o spotting when she wipes and cramping and decreased movement Medical History - Information : 4 Para: 2 Term: 2 : 0 Abortions: Spontaneous or Elective: 1 Number of Living Children: 2 - Gestational Age Gestational Age by LISET (wks/days): 28 Weeks and 4 Days Review of Systems - Review of Systems Constitutional: No problems Breast: No problems ENT: No problems Cardiovascular: No problems Respiratory: No problems Gastrointestinal: No problems Genitourinary: No problems Musculoskeletal: No problems Neurological: No problems Skin: No problems Vital Signs - Temperature Temperature: 97.6 F Temperature Source: Oral - Pulse Right Brachial Pulse Rate: 100 Pulse Assessment Method: Automatic Cuff - Respirations Respiratory Rate: 20 Oxygen Delivery Method: Room Air - Blood Pressure Right Arm Blood Pressure: 137/80 Blood Pressure Mean: 99 Blood Pressure Source: Automatic Cuff Medical Screen Scoring (Pre) - Cervical Exam Dilation: 0 cm = 0 Membranes: Intact - Uterine Contractions Frequency: N/A Duration: N/A Intensity: N/A - Maternal Vital Signs Maternal Temperature: N/A Maternal Blood Pressure: N/A Signs of Preeclampsia: Nausea/Vomiting = 1 Maternal Respirations: N/A - Maternal Trauma Maternal Trauma: N/A - Assessment - Baby A Baseline FHR: 140 Heart Rate - NICHD Category: Category I (Normal) = 0 NST: Reactive Position: N/A Station: N/A - Total Score - Baby A Total Score - Baby A: 1 - Total Score - Baby B Total Score - Baby B: 1 - Total Score - Baby C Total Score - Baby C: 1 - Level of Risk - Baby A Level of Risk - Baby A: Low (0-5) - Level of Risk - Baby B Level of Risk - Baby B: Low (0-5) - Level of Risk - Baby C Level of Risk - Baby C: Low (0-5) Physician Notification (Pre) - Physician Notified Physician Notified Date: 05/03/19 Physician Notified Time: 12:20 New Order Received: Yes - Notification Comment Comment: october discharg to home and keep scheduled appointment with Dr. Ortega on Saturday Disposition - Disposition OB Disposition: Discharge to home Discharge Date: 05/03/19 Discharge Time: 12:35 I agree with the RN Medical Screening Exam: Yes Risk & Benefit of care provided described in d/c instruction: Yes Diagnosis: RELATED CONDITIONS, UNSPECIFIED, THIRD TRIMESTER
== END 2019-05-03 12:30 | disposition home or self-care (01) ==
LOC: FBPOP 11:12
PROVIDERS: ATTEND Obstetrics & Gynecology
DX: O26.93 Pregnancy related conditions, unspecified, third trimester (principal); Z3A.28 28 weeks gestation of pregnancy
CPT/HCPCS: 59025; 99213

== ENCOUNTER 2019-07-07 14:45 | Outpatient (CLI) | payer BC ==
[2019-07-07 15:14] VITALS: BP 131/85; PULSE 100; RESP 17; TEMP 98.1
--- NOTE | 2019-07-28 07:33 | P.MSEPDOC ---
Presenting Problems - Arrival Data Date of Arrival on Unit: 07/07/19 Time of Arrival on Unit: 14:45 Mode of Transport: Ambulatory - Complaint OB-Reason for Admission/Chief Complaint: Rule Out SROM Comment: pt presents to triage with c/o gush of fluid around 1345, denies vb, reports + fm and occasional contractions that are not painful, abd soft and non tender, denies complications with Medical History - Information : 4 Para: 2 Term: 2 : 0 Abortions: Spontaneous or Elective: 1 Number of Living Children: 2 - Gestational Age Gestational Age by LISET (wks/days): 37 Weeks and 6 Days Review of Systems - Review of Systems Constitutional: No problems Breast: No problems ENT: No problems Cardiovascular: No problems Respiratory: No problems Gastrointestinal: No problems Genitourinary: No problems Musculoskeletal: No problems Neurological: No problems Skin: No problems Vital Signs - Temperature Temperature: 98.1 F Temperature Source: Temporal Artery Scan - Pulse Right Brachial Pulse Rate: 100 Pulse Assessment Method: Automatic Cuff - Respirations Respiratory Rate: 17 Oxygen Delivery Method: Room Air O2 Sat by Pulse Oximetry: 98 - Blood Pressure Right Arm Blood Pressure: 131/85 Blood Pressure Mean: 100 Blood Pressure Source: Automatic Cuff Medical Screen Scoring (Pre) - Cervical Exam Dilation: 1-3 cm = 1 Membranes: Intact - Uterine Contractions Frequency: > 5 minutes apart = 1 Duration: > 40 seconds = 2 Intensity: N/A - Maternal Vital Signs Maternal Temperature: N/A Maternal Blood Pressure: N/A Signs of Preeclampsia: N/A Maternal Respirations: N/A - Maternal Trauma Maternal Trauma: N/A - Assessment - Baby A Baseline FHR: 145 Heart Rate - NICHD Category: Category I (Normal) = 0 NST: Reactive Position: N/A Station: N/A - Total Score - Baby A Total Score - Baby A: 4 - Total Score - Baby B Total Score - Baby B: 4 - Total Score - Baby C Total Score - Baby C: 4 - Level of Risk - Baby A Level of Risk - Baby A: Low (0-5) - Level of Risk - Baby B Level of Risk - Baby B: Low (0-5) - Level of Risk - Baby C Level of Risk - Baby C: Low (0-5) Physician Notification (Pre) - Physician Notified Physician Notified Date: 07/07/19 Physician Notified Time: 15:27 New Order Received: Yes (dc home) Disposition - Disposition OB Disposition: Discharge to home, Written follow up instructions reviewed Discharge Date: 07/07/19 Discharge Time: 15:37 I agree with the RN Medical Screening Exam: Yes Risk & Benefit of care provided described in d/c instruction: Yes Diagnosis: FALSE LABOR AT OR AFTER 37 COMPLETED WEEKS OF GESTATION
== END 2019-07-07 15:37 | disposition home or self-care (01) ==
LOC: FBPOP 14:45
PROVIDERS: ATTEND Obstetrics & Gynecology
DX: O47.1 False labor at or after 37 completed weeks of gestation (principal); Z3A.37 37 weeks gestation of pregnancy
CPT/HCPCS: 59025; 84112; 99213

== ENCOUNTER 2019-07-22 21:28 | Outpatient (CLI) | payer BC ==
[2019-07-22 23:28] VITALS: BP 137/92; PULSE 96; RESP 18; TEMP 98.6
--- NOTE | 2019-08-04 11:51 | P.MSEPDOC ---
Presenting Problems - Arrival Data Date of Arrival on Unit: 07/22/19 Time of Arrival on Unit: 21:28 Mode of Transport: Wheelchair - Complaint OB-Reason for Admission/Chief Complaint: Possible Onset of Labor Comment: irreg cntrx all day. cntrx every 4-7 minutes since 2029 Medical History - Information : 4 Para: 2 Term: 2 : 0 Abortions: Spontaneous or Elective: 1 Number of Living Children: 2 - Gestational Age Gestational Age by LISET (wks/days): 40 Weeks and 0 Days Review of Systems - Review of Systems Constitutional: No problems Breast: No problems ENT: No problems Cardiovascular: No problems Respiratory: No problems Gastrointestinal: No problems Genitourinary: No problems Musculoskeletal: No problems Neurological: No problems Skin: No problems Vital Signs - Temperature Temperature: 98.6 F Temperature Source: Temporal Artery Scan - Pulse Right Pulse Rate: 96 Pulse Assessment Method: Pulse Oximetry - Respirations Respiratory Rate: 18 Oxygen Delivery Method: Room Air O2 Sat by Pulse Oximetry: 99 - Blood Pressure Right Arm Blood Pressure: 137/92 Blood Pressure Mean: 107 Blood Pressure Source: Automatic Cuff Medical Screen Scoring (Pre) - Cervical Exam Dilation: 1-3 cm = 1 Effacement: More than 50% = 2 Membranes: Intact - Uterine Contractions Frequency: > or = 36 weeks =2 Duration: > 40 seconds = 2 Intensity: N/A - Maternal Vital Signs Maternal Temperature: N/A Maternal Blood Pressure: N/A Signs of Preeclampsia: N/A Maternal Respirations: N/A - Maternal Trauma Maternal Trauma: N/A - Assessment - Baby A Baseline FHR: 130 Heart Rate - NICHD Category: Category I (Normal) = 0 NST: Reactive Position: N/A - Total Score - Baby A Total Score - Baby A: 7 - Total Score - Baby B Total Score - Baby B: 7 - Total Score - Baby C Total Score - Baby C: 7 - Level of Risk - Baby A Level of Risk - Baby A: Medium (6-9) - Level of Risk - Baby B Level of Risk - Baby B: Medium (6-9) - Level of Risk - Baby C Level of Risk - Baby C: Medium (6-9) Physician Notification (Pre) - Physician Notified Physician Notified Date: 07/22/19 Physician Notified Time: 22:53 - Notification Comment Comment: Dr Ortega called at home. Reported on pts c/o cntrx all day, becoming more. regular at 2030. Reported on fhts reactive, cntrx pattern, pts pain, no bleeding or. leaking. Reported on pts plan, minimal interventions. Dr Ortega aware. pt may. stay for another hour if desires, and then if no cervical change, pt may be d/c'd home. or pt may go home now with instructions. pt to return to triage Saturday for NST if. undelivered and keep scheduled Disposition - Disposition OB Disposition: Discharge to home Discharge Date: 07/22/19 Discharge Time: 23:10 I agree with the RN Medical Screening Exam: Yes Risk & Benefit of care provided described in d/c instruction: Yes Diagnosis: false labor
== END 2019-07-22 23:10 | disposition home or self-care (01) ==
LOC: FBPOP 21:28
PROVIDERS: ATTEND Obstetrics & Gynecology
DX: O47.1 False labor at or after 37 completed weeks of gestation (principal); Z3A.40 40 weeks gestation of pregnancy
CPT/HCPCS: 59025; 99213

== ENCOUNTER 2019-07-24 09:59 | Outpatient (CLI) | payer BC ==
[2019-07-24 12:48] VITALS: BP 123/76; PULSE 96; RESP 18; TEMP 97
--- NOTE | 2019-08-04 11:54 | P.MSEPDOC ---
Presenting Problems - Arrival Data Date of Arrival on Unit: 07/24/19 Time of Arrival on Unit: 10:00 Mode of Transport: Ambulatory - Complaint OB-Reason for Admission/Chief Complaint: NST Comment: Dr. Ortega sent pt in with order for NST due to post dates, Medical History - Information : 4 Para: 2 Term: 2 : 0 Abortions: Spontaneous or Elective: 1 Number of Living Children: 2 - Gestational Age Gestational Age by LISET (wks/days): 40 Weeks and 2 Days Review of Systems - Review of Systems Constitutional: No problems Breast: No problems ENT: No problems Cardiovascular: No problems Respiratory: No problems Gastrointestinal: No problems Genitourinary: No problems Musculoskeletal: No problems Neurological: No problems Skin: No problems Vital Signs - Temperature Temperature: 97.0 F Temperature Source: Axillary - Pulse Right Brachial Pulse Rate: 96 Pulse Assessment Method: Automatic Cuff - Respirations Respiratory Rate: 18 Oxygen Delivery Method: Room Air - Blood Pressure Right Arm Blood Pressure: 123/76 Blood Pressure Mean: 91 Blood Pressure Source: Automatic Cuff Medical Screen Scoring (Pre) - Cervical Exam Dilation: Exam Deferred Effacement: Exam Deferred Membranes: Intact - Uterine Contractions Frequency: > 5 minutes apart = 1 Duration: N/A Intensity: N/A - Maternal Vital Signs Maternal Temperature: N/A Maternal Blood Pressure: N/A Signs of Preeclampsia: N/A Maternal Respirations: N/A - Maternal Trauma Maternal Trauma: N/A - Assessment - Baby A Baseline FHR: 140 Heart Rate - NICHD Category: Category I (Normal) = 0 NST: Reactive Position: N/A Station: N/A - Total Score - Baby A Total Score - Baby A: 1 - Total Score - Baby B Total Score - Baby B: 1 - Total Score - Baby C Total Score - Baby C: 1 - Level of Risk - Baby A Level of Risk - Baby A: Low (0-5) - Level of Risk - Baby B Level of Risk - Baby B: Low (0-5) - Level of Risk - Baby C Level of Risk - Baby C: Low (0-5) Physician Notification (Pre) - Physician Notified Physician Notified Date: 07/24/19 Physician Notified Time: 10:50 New Order Received: Yes - Notification Comment Comment: reactive nst, pt sent home, will follow up on Saturday in office Disposition - Disposition OB Disposition: Triage, Discharge to home Discharge Date: 07/24/19 Discharge Time: 11:00 I agree with the RN Medical Screening Exam: Yes Risk & Benefit of care provided described in d/c instruction: Yes Diagnosis: post dates
== END 2019-07-24 11:00 | disposition home or self-care (01) ==
LOC: FBPOP 09:59
PROVIDERS: ATTEND Obstetrics & Gynecology
DX: O48.0 Post-term pregnancy (principal); Z3A.40 40 weeks gestation of pregnancy
CPT/HCPCS: 59025

== ENCOUNTER 2019-07-31 20:44 | Inpatient (IN) | payer BC ==
[2019-07-31] MEDS ORDERED: LIDOCAINE 0.5% (PF) 5 MG/ML (50 ML SDV) SQ PRN (20:47)
[2019-07-31] MEDS ORDERED: METHYLERGONOVINE 0.2 MG/ML 1 ML AMP IM PRN (20:47)
[2019-07-31] MEDS ORDERED: CARBOPROST TROMETHAMINE 250 MCG/ML 1 ML AMP IM PRN (20:47)
[2019-07-31] MEDS ORDERED: TERBUTALINE 1 MG/ML VIAL SQ PRN (20:47)
--- NOTE | 2019-07-31 20:53 | P.HPOB ---
History of Present Illness H&P Date: 07/31/19 Chief Complaint: IUP at 41 1/sevenths weeks, SROM, Labor This is a 29-year-old 4 para 2012 at 41 and 1/sevenths weeks with an estimated due date of . Patient presents to labor and delivery with complaints of spontaneous rupture of membranes approximately half an hour prior to presentation. Patient states fluid was clear. Patient is noted to be jerod about every 9 minutes. Patient has been receiving routine care since 19 weeks. Patient was initially considering a home and then desired hospital delivery secondary to cost. On blood work she has a blood type of O+, rubella status immune, RPR nonreactive, hepatitis B surface antigen negative, HIV negative, she did decline her one-hour Glucola group beta strep was negative on 06/29/2019. Review of Systems Constitutional: Denies chills, Denies fatigue, Denies fever Ears, nose, mouth and throat: Denies headache Cardiovascular: Reports leg edema Respiratory: Denies dyspnea Gastrointestinal: Denies constipation, Denies diarrhea, Denies nausea, Denies vomiting Genitourinary: Reports Past Medical History Past Medical History: Asthma, Thyroid Disorder Additional Past Medical History / Comment(s): Anxiety and depression, Hypo thyroid (not currently on meds, states it's controlled at this time, but has been diagnosed with it in the past), sport induced asthma during school years History of Any Multi-Drug Resistant Organisms: None Reported Past Surgical History: Orthopedic Surgery Additional Past Surgical History / Comment(s): lt knee arthroscopy and ACL repair, nose surgery Past Anesthesia/Blood Transfusion Reactions: No Reported Reaction, Family History of Problems w/ Anesthesia Additional Past Anesthesia/Blood Transfusion Reaction / Comment(s): dad-ponv Smoking Status: Never smoker - Past Family History Mother Family Medical History: Hypertension Father Family Medical History: Hyperlipidemia Medications and Allergies Home Medications Medication Instructions Recorded Confirmed Type Pnv,Calcium 72/Iron/Folic Acid 1 tab PO DAILY 07/23/16 07/24/19 History [ Plus Tablet] Dha 1 tab PO DAILY 05/14/18 07/24/19 History Allergies Allergy/AdvReac Type Severity Reaction Status Date / Time No Known Allergies Allergy Verified 07/24/19 10:07 Exam Osteopathic Statement: *. No significant issues noted on an osteopathic structural exam other than those noted in the History and Physical/Consult. Targeted exam is performed and state in general this a well-nourished well- developed female in no acute distress, breathing is noted to nonlabored heart has regular rhythm, abdomen is gravid and appropriate for gestational age heart strip to be category 1 and she is jerod every 3 minutes. Assessment and Plan (1) Post-dates Current Visit: Yes Status: Acute Code(s): O48.0 - POST-TERM SNOMED Code(s): 52164478 (2) SROM (spontaneous rupture of membranes) Current Visit: Yes Status: Acute Code(s): AXG7959 - SNOMED Code(s): 008870512 (3) Active labor Current Visit: Yes Status: Acute Code(s): ILY4804 - SNOMED Code(s): 473431390 Plan: Patient is admitted to labor and delivery with anticipation of spontaneous vaginal delivery.
[2019-07-31] MEDS ORDERED: LACTATED RINGERS 1,000 ML IV SCH (21:00)
[2019-07-31 21:21] LABS: Basophils % (A) 1 %; Eosinophils # (A) 0.1 k/uL (0-0.7); Eosinophils % (A) 1 %; HGB 10.8 gm/dL (11.4-16.0); Lymphocytes # (A) 1.7 k/uL (1.0-4.8); Lymphocytes % (A) 22 %; MCH 26.2 pg (25.0-35.0); MCHC 32.9 g/dL (31.0-37.0); MCV 79.5 fL (80.0-100.0); Mean Platelet Volume 9.9; Monocytes # (A) 0.4 k/uL (0-1.0); Monocytes % (A) 5 %; Neutrophils # (A) 5.4 k/uL (1.3-7.7); Neutrophils % (A) 70 %; Platelet Count 147 k/uL (150-450); RBC 4.14 m/uL (3.80-5.40); RDW 14.7 % (11.5-15.5); WBC 7.7 k/uL (3.8-10.6)
[2019-08-01] MEDS ORDERED: diphenhydrAMINE 25 MG CAP PO PRN (03:37)
[2019-08-01] MEDS ORDERED: diphenhydrAMINE 50 MG CAP PO PRN (03:37)
[2019-08-01] MEDS ORDERED: HYDROcodone/APAP 5-325MG 1 EACH TAB PO PRN (03:37)
[2019-08-01] MEDS ORDERED: ACETAMINOPHEN TAB 325 MG TAB PO PRN (03:37)
[2019-08-01] MEDS ORDERED: HYDROCORTISONE 2.5% RECTAL CREAM 30 GM TUBE RECTAL PRN (03:37)
[2019-08-01] MEDS ORDERED: ZOLPIDEM 5 MG TAB PO PRN (03:37)
[2019-08-01] MEDS ORDERED: WITCH HAZEL 1 EACH MED..PAD TOPICAL PRN (03:37)
[2019-08-01] MEDS ORDERED: diphenhydrAMINE 50 MG/ML 1 ML VIAL IVP PRN ×2 (03:37)
[2019-08-01] MEDS ORDERED: BENZOCAINE/MENTHOL SPRAY 1 GM/SPRAY AEROSOL TOPICAL PRN (03:37)
[2019-08-01] MEDS ORDERED: SIMETHICONE 80 MG CHEWABLE PO PRN (03:37)
[2019-08-01] MEDS ORDERED: LANOLIN CREAM 5 GM TUBE TOPICAL PRN (03:37)
--- NOTE | 2019-08-01 03:40 | P.PROBDLV ---
Vaginal Delivery Note - . Vaginal Delivery Note: This pleasant 29-year-old 4 para 2011 at 41 and 1/sevenths weeks presented to labor and delivery with complaints of spontaneous rupture of membranes. Patient was noted to be jerod every 9 minutes. Patient noted the amniotic fluid to be clear upon rupture. Patient was admitted to labor and delivery she made slow progress through labor eventually becoming complete began pushing and had a normal spontaneous vaginal delivery of a viable female , with Apgars of 9-9 at one and 5 minutes respectively. Nuchal cord was noted and delivered through. Patient requested delay cord clamping therefore after a two-minute delayed the umbilical cord was doubly clamped and cut and the was handed off to mom. The placenta was then delivered spontaneously intact with a three-vessel cord being noted. Uterus is noted to be firm and below the umbilicus at this time. Inspection the patient's vaginal vault no lacerations were noted. Estimated blood loss for this delivery 300 mL. Patient and tolerated delivery well and are resting comfortably.
[2019-08-01] MEDS ORDERED: OXYTOCIN 20 UNITS/1000 ML NS 1,000 ML IV SCH (03:45)
[2019-08-01] MEDS: IBUPROFEN 600 MG TAB PO PRN ×2 (04:37→22:20)
[2019-08-01 05:50] VITALS: RESP 16
[2019-08-01] MEDS: SENNOSIDES-DOCUSATE SODIUM 1 EACH TAB PO SCH ×2 (08:18→22:22)
--- NOTE | 2019-08-01 11:29 | P.PNOBGVD ---
Subjective - Subjective Principal diagnosis: PPD 0 Interval history: Patient is doing well on this day 0. Patient delivered early this morning. She is a billing and voiding without difficulty. She is tolerating a regular diet without nausea or vomiting. She states her pain is well- controlled. She is breast-feeding without difficulty. Patient reports: Reports appetite normal, Reports voiding normally, Reports pain well controlled, Reports ambulating normally [place]: doing well, nursing well Objective - Latest Vital Signs Latest vital signs: Vital Signs Temp Pulse Resp BP Pulse Ox 08/01/19 08:00 98.3 F 83 16 124/72 08/01/19 05:35 98.6 F 85 16 132/78 08/01/19 05:05 98.2 F 82 17 141/73 08/01/19 04:33 88 18 130/80 08/01/19 04:20 99.2 F 80 16 126/80 08/01/19 04:02 85 18 121/80 08/01/19 03:50 87 18 123/81 08/01/19 03:35 98.1 F 95 18 133/84 07/31/19 20:45 97.3 F L 87 18 144/83 100 Intake and Output 07/31/19 08/01/19 08/01/19 22:59 06:59 14:59 Intake Total 300 1000 Balance 300 1000 Intake: Intake, IV Titration 1000 Amount Oxytocin 20 Units/1000 ml 1000 Ns 1,000 ml @ Per Protocol IV .Q0M PAULO Rx#: [id number] Oral 300 Other: # Voids 1 1 Weight 95.254 kg - Exam Extremities: Present: normal, edema Abdomen: Present: normal appearance, soft Uterus: Present: normal, firm - Labs Labs: Abnormal Lab Results - Last 24 Hours (Table) 07/31/19 Range/Units 21:11 Hgb 10.8 L (11.4-16.0) gm/dL Hct 33.0 L (34.0-46.0) % MCV 79.5 L (80.0-100.0) fL Plt Count 147 L (150-450) k/uL Assessment and Plan (1) Post-dates Current Visit: Yes Status: Acute Code(s): O48.0 - POST-TERM SNOMED Code(s): 63194232 (2) SROM (spontaneous rupture of membranes) Current Visit: Yes Status: Acute Code(s): TTY5321 - SNOMED Code(s): 764064105 (3) Active labor Current Visit: Yes Status: Acute Code(s): YNJ1196 - SNOMED Code(s): 036968682 (4) Status post vaginal delivery Current Visit: Yes Status: Acute Code(s): KRZ9728 - SNOMED Code(s): 502877886 Plan: Patient is doing well , anticipate discharge home in the morning.
[2019-08-02 07:58] VITALS: BP 122/68; PULSE 88; TEMP 98.1
[2019-08-02] MEDS: IBUPROFEN 600 MG TAB PO PRN (08:01)
--- NOTE | 2019-08-02 10:23 | P.DS ---
Providers Date of admission: 07/31/19 20:44 Expected date of discharge: 08/02/19 Attending physician: Esem Ortega Primary care physician: Stated None - Discharge Diagnosis(es) (1) Post-dates Current Visit: Yes Status: Acute (2) SROM (spontaneous rupture of membranes) Current Visit: Yes Status: Acute (3) Active labor Current Visit: Yes Status: Acute (4) Status post vaginal delivery Current Visit: Yes Status: Acute Hospital Course: This 29-year-old 4 para 2012 at 41 and one sevenths weeks presented to labor and delivery with complaints of spontaneous rupture of membranes. Patient was jerod labor 9 minutes. Patient was receiving routine care with Dr. Ortega which has been uncomplicated. Patient made slow progress through labor eventually becoming complete and had a normal spent taste vaginal delivery of a viable female 8 lbs. 9 oz. with Apgars of 9 and 9 at one and 5 minutes respectively. Patient has done well . On this day #1 she is ambulating and voiding without difficulty she is tolerating a regular diet without nausea or vomiting and she states she is feeling well. Patient Condition at Discharge: Good Plan - Discharge Summary New Discharge Prescriptions: No Action Pnv,Calcium 72/Iron/Folic Acid [ Plus Tablet] 1 tab PO DAILY Dha 1 tab PO DAILY Discharge Medication List Pnv,Calcium 72/Iron/Folic Acid [ Plus Tablet] 1 tab PO DAILY 07/23/16 [H istory] Dha 1 tab PO DAILY 05/14/18 [History] Patient Instructions/Handouts: Vaginal Delivery (DC), Vaginal Delivery (GEN) Discharge Disposition: HOME SELF-CARE
== END 2019-08-02 12:39 | disposition home or self-care (01) | DRG 807 ==
LOC: 4FBP 20:44
PROVIDERS: ADMIT Obstetrics & Gynecology Obstetrics; ATTEND Obstetrics & Gynecology
PROC: 10E0XZZ Delivery of Products of Conception, External Approach (ICD-10-PCS; principal; 2019-08-01)
DX: O48.0 Post-term pregnancy (principal); Z37.0 Single live birth; O69.81X0 Labor and delivery complicated by cord around neck, without compression, not applicable or unspecified; E03.9 Hypothyroidism, unspecified; O99.284 Endocrine, nutritional and metabolic diseases complicating childbirth; Z3A.41 41 weeks gestation of pregnancy; Z86.59 Personal history of other mental and behavioral disorders; Z87.09 Personal history of other diseases of the respiratory system; Z82.49 Family history of ischemic heart disease and other diseases of the circulatory system
CPT/HCPCS: 85025; 86850; 86900; 86901

== ENCOUNTER → 2021-02-22 | Outpatient (CLI) | payer BC ==
[2021-02-22 12:12] VITALS: BMI 37.3
== END | disposition home or self-care (01) ==
LOC: DBWHC3 08:48
PROVIDERS: ATTEND Family Medicine
DX: E66.9 Obesity, unspecified (principal); E78.2 Mixed hyperlipidemia
CPT/HCPCS: 97802

== ENCOUNTER 2023-01-29 14:57 | Emergency (ER) | payer BC ==
[2023-01-29 17:17] LABS: Basophils % (A) 1 %; Eosinophils # (A) 0.1 k/uL (0-0.7); Eosinophils % (A) 2 %; HCT 38.5 % (34.0-46.0); HGB 13.6 gm/dL (11.4-16.0); Lymphocytes # (A) 2.3 k/uL (1.0-4.8); Lymphocytes % (A) 28 %; MCH 30.4 pg (25.0-35.0); MCHC 35.3 g/dL (31.0-37.0); MCV 86.2 fL (80.0-100.0); Mean Platelet Volume 7.8; Monocytes # (A) 0.4 k/uL (0-1.0); Monocytes % (A) 4 %; Neutrophils # (A) 5.3 k/uL (1.3-7.7); Neutrophils % (A) 65 %; Platelet Count 219 k/uL (150-450); RBC 4.47 m/uL (3.80-5.40); RDW 13.7 % (11.5-15.5); WBC 8.3 k/uL (3.8-10.6)
--- NOTE | 2023-01-29 17:33 | ED ---
General Adult HPI - General Chief complaint: Skin/Abscess/Foreign Body Stated complaint: Swollen Lymph Notes,Sent by pcp Time Seen by Provider: 01/29/23 16:03 Source: patient Mode of arrival: ambulatory Limitations: no limitations - History of Present Illness Initial comments: Patient is a 32-year-old female who presents to the emergency department for s wollen lymph nodes. Patient reports swollen lymph nodes for the past week. She called her primary care provider who told to come to the emergency department for evaluation. Patient reports swollen lymph nodes in the right side of her head, ear region, and neck. The nodes are minimally tender. She denies upper respiratory symptoms, fever, chills, cough, chest pain, shortness of breath. Denies skin scratches or bites head. - Related Data Home Medications Medication Instructions Recorded Confirmed Pnv,Calcium 72/Iron/Folic Acid 1 tab PO DAILY 07/23/16 07/31/19 [ Plus Tablet] Dha 1 tab PO DAILY 05/14/18 07/31/19 Allergies Allergy/AdvReac Type Severity Reaction Status Date / Time No Known Allergies Allergy Verified 01/29/23 15:06 Review of Systems ROS Statement: Those systems with pertinent positive or pertinent negative responses have been documented in the HPI. ROS Other: All systems not noted in ROS Statement are negative. Past Medical History Past Medical History: Asthma, Thyroid Disorder Additional Past Medical History / Comment(s): Anxiety and depression, Hypothyroid (not currently on meds, states it's controlled at this time, but has been diagnosed with it in the past), sport induced asthma during school years History of Any Multi-Drug Resistant Organisms: None Reported Past Surgical History: Orthopedic Surgery Additional Past Surgical History / Comment(s): lt knee arthroscopy and ACL repair, nose surgery Past Anesthesia/Blood Transfusion Reactions: No Reported Reaction, Family History of Problems w/ Anesthesia Additional Past Anesthesia/Blood Transfusion Reaction / Comment(s): dad-ponv Past Psychological History: Anxiety, Depression Past Alcohol Use History: None Reported, Occasional Past Drug Use History: None Reported - Past Family History Mother Family Medical History: Hypertension Father Family Medical History: Hyperlipidemia General Exam Limitations: no limitations General appearance: alert ENT exam: Present: normal oropharynx, TM's normal bilaterally Neck exam: Present: lymphadenopathy (Right scalp, preauricular, postauricular, parotid, anterior cervical lymphadenopathy. Minimally tender, mobile, soft. No surrounding erythema, swelling or fluctuance) Respiratory exam: Present: normal lung sounds bilaterally. Absent: respiratory distress, wheezes, rales, rhonchi, stridor Neurological exam: Present: alert Skin exam: Present: warm, dry, intact, normal color. Absent: rash Course Vital Signs 01/29/23 01/29/23 15:03 17:59 Temperature 98.3 F 98.1 F Pulse Rate 89 77 Respiratory 18 16 Rate Blood Pressure 149/98 119/85 O2 Sat by Pulse 98 96 Oximetry Medical Decision Making - Medical Decision Making Was pt. sent in by a medical professional or institution (, TALON, DIGITAL PHOTOGRAPHER, urgent care, hospital, or care home...) When possible be specific @ -Primary care provider today Did you speak to anyone other than the patient for history (EMS, parent, family, police, friend...)? What history was obtained from this source @ -No Did you review nursing and triage notes (agree or disagree)? Why? @ -I reviewed and agree with nursing and triage notes Were old charts reviewed (outside hosp., previous admission, EMS record, old EKG, old radiological studies, urgent care reports/EKG's, care home records)? Report findings @ -No old charts were reviewed Differential Diagnosis (chest pain, altered mental status, abdominal pain women, abdominal pain men, vaginal bleeding, weakness, fever, dyspnea, syncope, headache, dizziness, GI bleed, back pain, seizure, CVA, palpatations, mental health)? @ -Viral infection, lymphoma, lymphedema, parotitis. This list is not meant to be all-inclusive EKG interpreted by me (3pts min.). @ -As above X-rays interpreted by me (1pt min.). @ -None done CT interpreted by me (1pt min.). @ -None done U/S interpreted by me (1pt. min.). @ -None done What testing was considered but not performed or refused? (CT, X-rays, U/S, labs)? Why? @ -None What meds were considered but not given or refused? Why? @ -None Did you discuss the management of the patient with other professionals (professionals i.e. , TALON, DIGITAL PHOTOGRAPHER, lab, RT, psych nurse, executive secretary social welfare, diamond sawer, teacher, structural engineering drafting officer, case resource manager)? Give summary @ -No Was smoking cessation discussed for >3mins.? @ -No Was critical care preformed (if so, how long)? @ -No Were there social determinants of health that impacted care today? How? (Homelessness, low income, unemployed, alcoholism, drug addiction, transportation, low edu. Level, literacy, decrease access to med. care, care home, rehab)? @ -No Was there de-escalation of care discussed even if they declined (Discuss DNR or withdrawal of care, Hospice)? DNR status @ -No What co-morbidities impacted this encounter? (DM, HTN, Smoking, COPD, CAD, Cancer, CVA, ARF, Chemo, Hep., AIDS, mental health diagnosis, sleep apnea, morbid obesity)? @ -None Was patient admitted / discharged? Hospital course, mention meds given and route, prescriptions, significant lab abnormalities, going to OR and other pertinent info. @ -Patient presenting for swollen lymph nodes. There is chainlike lymphadenopathy of the right scalp, preauricular, postauricular, parotid, anterior cervical region. Minimally tender, mobile, soft. No surrounding erythema, swelling or fluctuance. Patient reassured of suspected viral infection. She was very nervous and for peace of mind. CBC was obtained which showed no leukocytosis or other abnormal findings. Patient to apply warm compressed home and follow-up with her primary care provider. Undiagnosed new problem with uncertain prognosis? @ -No Drug Therapy requiring intensive monitoring for toxicity (Heparin, Nitro, Insulin, Cardizem)? @ -No Were any procedures done? @ -No Diagnosis/symptom? @ -Lymphadenopathy Acute, or Chronic, or Acute on Chronic? @ -Acute Uncomplicated (without systemic symptoms) or Complicated (systemic symptoms)? @ -Uncomplicated Side effects of treatment? @ -No Exacerbation, Progression, or Severe Exacerbation? @ -No Poses a threat to life or bodily function? How? (Chest pain, [place], [place], pneumonia, PE, COPD, DKA, ARF, appy, cholecystitis, CVA, Diverticulitis, Homicidal, Suicidal, threat to staff... and all critical care pts) @ -No Dr. Lozano is my attending - Lab Data Result diagrams: 01/29/23 17:00 Lab Results 01/29/23 Range/Units 17:00 WBC 8.3 (3.8-10.6) k/uL RBC 4.47 (3.80-5.40) m/uL Hgb 13.6 (11.4-16.0) gm/dL Hct 38.5 (34.0-46.0) % MCV 86.2 (80.0-100.0) fL MCH 30.4 (25.0-35.0) pg MCHC 35.3 (31.0-37.0) g/dL RDW 13.7 (11.5-15.5) % Plt Count 219 (150-450) k/uL MPV 7.8 Neutrophils % 65 % Lymphocytes % 28 % Monocytes % 4 % Eosinophils % 2 % Basophils % 1 % Neutrophils # 5.3 (1.3-7.7) k/uL Lymphocytes # 2.3 (1.0-4.8) k/uL Monocytes # 0.4 (0-1.0) k/uL Eosinophils # 0.1 (0-0.7) k/uL Basophils # 0.0 (0-0.2) k/uL Disposition Clinical Impression: Lymphadenopathy Disposition: HOME SELF-CARE Condition: Good Instructions (If sedation given, give patient instructions): Lymphadenopathy (ED) Additional Instructions: Continue warm compress. Follow-up with primary care provider in one to 2 days. Return to the emergency department if you experience new, concerning, or worsen ing symptoms. Is patient prescribed a controlled substance at d/c from ED?: No Referrals: Jayla Ryan MD [Primary Care Provider] - 1-2 days
[2023-01-29 18:00] VITALS: BP 119/85; PULSE 77; RESP 16; TEMP 98.1
== END 2023-01-29 18:00 | disposition home or self-care (01) ==
LOC: EC 14:57
DX: R59.1 Generalized enlarged lymph nodes (principal); J45.909 Unspecified asthma, uncomplicated; Z86.59 Personal history of other mental and behavioral disorders
CPT/HCPCS: 36415; 85025; 99283

== ENCOUNTER 2024-05-19 00:15 | Observation (INO) | payer BC ==
--- NOTE | 2024-05-19 00:50 | ED ---
Abdominal Pain HPI - General Chief Complaint: Abdominal Pain Stated Complaint: Abdominal Pain Time Seen by Provider: 05/19/24 00:20 Source: patient Mode of arrival: ambulatory Limitations: no limitations - History of Present Illness Initial Comments: Patient is a 34-year-old female with no significant past medical history presenting today for right lower quadrant pain. Patient states that she was sitting at her daughter's dance class today when she began experiencing sharp right sided abdominal pain that folic she needed to have a bowel movement. She took 2 extra Tylenol when this started around 730 without improvement in pain. She took an additional two 250 mg tablets of Tylenol prior to coming into the ER. She endorses associated nausea and emesis that is nonbloody nonbilious. Last bowel movement at 3 PM today was normal soft and brown for her. Denies hematochezia or melena. No prior abdominal surgeries. First date of her last menstrual period was 2 weeks ago. States it was normal for her. Denies chance of states she is excited with her is not on control but states she has not been sexually active since having her period approximately 2 weeks ago. Denies any vaginal discharge or history STIs. Denies hematuria or dysuria. Denies diarrhea or fevers. Does endorse chills. No chest pain. States it hurts to take a deep breath but otherwise denies shortness of breath. Pain radiates from RLQ to right flank. - Related Data Home Medications Medication Instructions Recorded Confirmed Pnv,Calcium 72/Iron/Folic Acid 1 tab PO DAILY 07/23/16 07/31/19 [ Plus Tablet] Dha 1 tab PO DAILY 05/14/18 07/31/19 Allergies Allergy/AdvReac Type Severity Reaction Status Date / Time No Known Allergies Allergy Verified 05/19/24 00:19 Review of Systems ROS Statement: Those systems with pertinent positive or pertinent negative responses have been documented in the HPI. ROS Other: All systems not noted in ROS Statement are negative. Past Medical History Past Medical History: Asthma, Thyroid Disorder Additional Past Medical History / Comment(s): Anxiety and depression, Hypothyroid (not currently on meds, states it's controlled at this time, but has been diagnosed with it in the past), sport induced asthma during school years History of Any Multi-Drug Resistant Organisms: None Reported Past Surgical History: Orthopedic Surgery Additional Past Surgical History / Comment(s): lt knee arthroscopy and ACL repair, nose surgery Past Anesthesia/Blood Transfusion Reactions: No Reported Reaction, Family History of Problems w/ Anesthesia Additional Past Anesthesia/Blood Transfusion Reaction / Comment(s): dad-ponv Past Psychological History: Anxiety, Depression Smoking Status: Never smoker Past Alcohol Use History: Occasional Past Drug Use History: None Reported - Past Family History Mother Family Medical History: Hypertension Father Family Medical History: Hyperlipidemia General Exam - General Exam Comments Initial Comments: PE: CONSTITUTIONAL: No apparent distress, well appearing. though tearful 2/2 pain SKIN: Warm, dry, no jaundice, hives or petechiae EYES: Pupils are equally round, extraocular movements intact without nystagmus, clear conjunctiva, non-icteric sclera HENT: Normocephalic, atraumatic, moist mucus membranes, oropharynx clear without exudates NECK: , Full range of motion, normal appearance PULMONARY: Clear to auscultation without wheezes, rhonchi, or rales, normal excursion, no accessory muscle use and no stridor CARDIOVASCULAR: Regular rate, rhythm, normal S1 and S2. No appreciated murmurs, rubs or gallops. Strong radial pulses with intact distal perfusion. No lower extremity edema GASTROINTESTINAL: Soft, active bowel sounds throughout, no guarding, positive rebound tenderness, tenderness palpation of the periumbilical region and right lower quadrant/McBurney's point, negative Ray sign, positive psoas sign, non- distended, no palpable masses, No hepatosplenomegaly, + right CVA TTP GENITOURINARY: Pelvic exam performed with DAVID Castellano, as hat stock laminating machine operator, closed cervical os, no lacerations or bleeding, thin odorless white discharge, few small papules on cervix no cervical motion tenderness, no adnexal tenderness or masses palpated MUSCULOSKELETAL: Extremities have no gross deformity, no edema, redness, or swelling. No calf swelling NEUROLOGIC:_a/o x 3, GCS 15, normal mentation and speech. Moves all extremities x 4 without motor or sensory deficit PSYCHIATRIC:_normal mood and affect, thought process is clear and linear Limitations: no limitations Course Vital Signs 05/19/24 05/19/24 00:16 04:36 Temperature 97.5 F L 97.6 F Pulse Rate 72 71 Respiratory 18 16 Rate Blood Pressure 139/99 116/73 O2 Sat by Pulse 97 99 Oximetry Medical Decision Making - Medical Decision Making Was pt. sent in by a medical professional or institution (TALON Cohen, LINE UP WORKER, urgent care, hospital, or correction...) When possible be specific @ -[No] Did you speak to anyone other than the patient for history (EMS, parent, family, police, friend...)? What history was obtained from this source @ -[No] Did you review nursing and triage notes (agree or disagree)? Why? @ -[I reviewed and agree with nursing and triage notes] Were old charts reviewed (outside hosp., previous admission, EMS record, old EKG, old radiological studies, urgent care reports/EKG's, correction records)? Report findings @ -Medical records reviewed Differential Diagnosis (chest pain, altered mental status, abdominal pain women, abdominal pain men, vaginal bleeding, weakness, fever, dyspnea, syncope, headache, dizziness, GI bleed, back pain, seizure, CVA, palpatations, mental health, musculoskeletal)? @ -Differential Abdominal Pain Women: Appendicitis, Cholecystitis, diverticulosis, ischemic bowel, pancreatitis, hepatitis, UTI, gastroenteritis, AAA, incarcerated hernia, bowel obstruction, constipation, inflammatory bowel, hepatitis, peptic ulcer disease, splenic infarction, perforated viscus, vulvitis, ovarian torsion, PID, kidney stone, placenta abruption, this is not meant to be an all-inclusive list EKG interpreted by me (3pts min.). @ -[As above] X-rays interpreted by me (1pt min.). @ -[None done] CT interpreted by me (1pt min.). @No evidence of appendicitis, no fat stranding, no free air or free fluid U/S interpreted by me (1pt. min.). @Unable to identify appendix on ultrasound of the appendix, no free fluid in the abdomen on transvaginal ultrasound, blood flow to both ovaries present on transvaginal ultrasound What testing was considered but not performed or refused? (CT, X-rays, U/S, labs)? Why? @ -[None] What meds were considered but not given or refused? Why? @ -[None] Did you discuss the management of the patient with other professionals (professionals i.e. TALON Cohen, LINE UP WORKER, lab, RT, psych nurse, social professionals, fireman, teacher, district resource officer, adult protective caseworker)? Give summary @ -[No] Was smoking cessation discussed for >3mins.? @ -[No] Was critical care preformed (if so, how long)? @ -[No] Were there social determinants of health that impacted care today? How? (Homelessness, low income, unemployed, alcoholism, drug addiction, t ransportation, low edu. Level, literacy, decrease access to med. care, correction, rehab)? @ -[No] Was there de-escalation of care discussed even if they declined (Discuss DNR or withdrawal of care, Hospice)? @ -[No] What co-morbidities impacted this encounter? (DM, HTN, Smoking, COPD, CAD, Cancer, CVA, ARF, Chemo, Hep., AIDS, mental health diagnosis, sleep apnea, morbid obesity)? @ -[None] Was patient admitted / discharged? Hospital course, mention meds given and route, prescriptions, significant lab abnormalities, going to OR and other pertinent info. @ -[hospital course] Pleasant 34-year-old female presenting for 1 night of sharp right lower quadrant pain that radiates around towards her back, no prior abdominal surgeries. On assessment patient well-appearing but tearful from pain. Exam significant for tenderness outpatient of the right lower quadrant, positive McBurney's point, negative Ray's sign, positive rebound, positive psoas sign, active bowel sounds, abdomen nondistended, exam shows no blood in the vaginal canal, no adnexal tenderness or masses.. Discussed with patient plan for pain control, conference of labs ultrasound of the appendix and ovary to assess for appen dicitis ovarian torsion ectopic . Urinalysis as well. If ultrasound nondiagnostic did with CT of the abdomen. Patient agreeable with plan of care Labs and imaging reviewed. Grossly within normal limits. Abnormal values not concerning for acute pathology related to presenting complaint. No signs of torsion or ectopic and ultrasound of the pelvis, CT shows no signs of appendicitis or other acute process. Urine without signs of infection or blood. Lactic 1.7. No leukocytosis. LFTs and lipase within normal limits. On reassessment patient rates pain as 3-4/10 though still persistent. Will trial GI cocktail, if still significant pain, will admit for serial abdominal exams and obs, if improves will plan for discharge. On reassessment patient still describes significant pain and is comfortable. On repeat exam she has epigastric, periumbilical and right lower quadrant tenderness. No right upper quadrant tenderness. I did discuss patient's case with Dr. Baldwin, we had concern for intermittent ovarian torsion however despite your reassuring labs, imaging very low suspicion for torsion at this point Undiagnosed new problem with uncertain prognosis? @ -[No] Drug Therapy requiring intensive monitoring for toxicity (Heparin, Nitro, Insulin, Cardizem)? @ -[No] Were any procedures done? @ -[No] Diagnosis/symptom? @ -[default] Acute, or Chronic, or Acute on Chronic? @Acute Uncomplicated (without systemic symptoms) or Complicated (systemic symptoms)? @Complicated Side effects of treatment? @ -[No] Exacerbation, Progression, or Severe Exacerbation? @ -[No] Poses a threat to life or bodily function? How? (Chest pain, [place], [place], pneumonia, PE, COPD, DKA, ARF, appy, cholecystitis, CVA, Diverticulitis, Homicidal, Suicidal, threat to staff... and all critical care pts) @ -[No] - Lab Data Result diagrams: 05/19/24 01:31 05/19/24 01:31 Lab Results 05/19/24 05/19/24 05/19/24 Range/Units 00:48 01:31 01:31 WBC 8.7 (3.8-10.6) k/uL RBC 4.92 (3.80-5.40) m/uL Hgb 14.2 (11.4-16.0) gm/dL Hct 42.7 (34.0-46.0) % MCV 86.7 (80.0-100.0) fL MCH 28.9 (25.0-35.0) pg MCHC 33.3 (31.0-37.0) g/dL RDW 13.9 (11.5-15.5) % Plt Count 257 (150-450) k/uL MPV 7.5 Neutrophils % 72 % Lymphocytes % 21 % Monocytes % 4 % Eosinophils % 1 % Basophils % 0 % Neutrophils # 6.3 (1.3-7.7) k/uL Lymphocytes # 1.9 (1.0-4.8) k/uL Monocytes # 0.3 (0-1.0) k/uL Eosinophils # 0.1 (0-0.7) k/uL Basophils # 0.0 (0-0.2) k/uL PT 10.6 (10.0-12.5) sec INR 1.0 (<1.2) APTT 29.3 (22.0-30.0) sec Sodium (137-145) mmol/L Potassium (3.5-5.1) mmol/L Chloride (98-107) mmol/L Carbon Dioxide (22-30) mmol/L Anion Gap mmol/L BUN (7-17) mg/dL Creatinine (0.52-1.04) mg/dL Est GFR (CKD-EPI)AfAm (>60 ml/min/1.73 sqM) Est GFR (CKD-EPI)NonAf (>60 ml/min/1.73 sqM) Glucose (74-99) mg/dL Plasma Lactic Acid Roly (0.7-2.0) mmol/L Calcium (8.4-10.2) mg/dL Total Bilirubin (0.2-1.3) mg/dL AST (14-36) U/L ALT (4-34) U/L Alkaline Phosphatase (38-126) U/L Total Protein (6.3-8.2) g/dL Albumin (3.5-5.0) g/dL Amylase (30-110) U/L Lipase (23-300) U/L HCG, Quant mIU/mL Urine Color Colorless Urine Appearance Clear (Clear) Urine pH 5.5 (5.0-8.0) Ur Specific [place] 1.012 (1.001-1.035) Urine Protein Negative (Negative) Urine Glucose (UA) Negative (Negative) Urine Ketones Negative (Negative) Urine Blood Negative (Negative) Urine Nitrite Negative (Negative) Urine Bilirubin Negative (Negative) Urine Urobilinogen <2.0 (<2.0) mg/dL Ur Leukocyte Esterase Negative (Negative) 05/19/24 05/19/24 Range/Units 01:31 01:31 WBC (3.8-10.6) k/uL RBC (3.80-5.40) m/uL Hgb (11.4-16.0) gm/dL Hct (34.0-46.0) % MCV (80.0-100.0) fL MCH (25.0-35.0) pg MCHC (31.0-37.0) g/dL RDW (11.5-15.5) % Plt Count (150-450) k/uL MPV Neutrophils % % Lymphocytes % % Monocytes % % Eosinophils % % Basophils % % Neutrophils # (1.3-7.7) k/uL Lymphocytes # (1.0-4.8) k/uL Monocytes # (0-1.0) k/uL Eosinophils # (0-0.7) k/uL Basophils # (0-0.2) k/uL PT (10.0-12.5) sec INR (<1.2) APTT (22.0-30.0) sec Sodium 137 (137-145) mmol/L Potassium 4.0 (3.5-5.1) mmol/L Chloride 104 (98-107) mmol/L Carbon Dioxide 23 (22-30) mmol/L Anion Gap 10 mmol/L BUN 15 (7-17) mg/dL Creatinine 0.65 (0.52-1.04) mg/dL Est GFR (CKD-EPI)AfAm >90 (>60 ml/min/1.73 sqM) Est GFR (CKD-EPI)NonAf >90 (>60 ml/min/1.73 sqM) Glucose 117 H (74-99) mg/dL Plasma Lactic Acid Roly 1.3 (0.7-2.0) mmol/L Calcium 9.3 (8.4-10.2) mg/dL Total Bilirubin 0.5 (0.2-1.3) mg/dL AST 25 (14-36) U/L ALT 20 (4-34) U/L Alkaline Phosphatase 99 (38-126) U/L Total Protein 8.5 H (6.3-8.2) g/dL Albumin 4.8 (3.5-5.0) g/dL Amylase 59 (30-110) U/L Lipase 86 (23-300) U/L HCG, Quant <2.4 mIU/mL Urine Color Urine Appearance (Clear) Urine pH (5.0-8.0) Ur Specific [place] (1.001-1.035) Urine Protein (Negative) Urine Glucose (UA) (Negative) Urine Ketones (Negative) Urine Blood (Negative) Urine Nitrite (Negative) Urine Bilirubin (Negative) Urine Urobilinogen (<2.0) mg/dL Ur Leukocyte Esterase (Negative) Disposition Referrals: Jayla Ryan MD [Primary Care Provider] - 1-2 days
[2024-05-19 01:16] LABS: Appearance,Urine Clear (Clear); Bilirubin,Urine Negative (Negative); Blood,Urine Negative (Negative); Color,Urine Colorless; Glucose,Urine (UA) Negative (Negative); Ketones,Urine Negative (Negative); Leukocyte Esterase,Urine Negative (Negative); Nitrite,Urine Negative (Negative); PH, Urine 5.5 (5.0-8.0); Protein,Urine Negative (Negative); Specific Gravity,Urine 1.012 (1.001-1.035); Urobilinogen,Urine <2.0 mg/dL (<2.0)
--- NOTE | 2024-05-19 01:32 | US ---
EXAMINATION TYPE: US abdomen APPY DATE OF EXAM: 05/19/2024 COMPARISON: NONE CLINICAL INDICATION: Female, 34 years old with history of RLQ pain, appy?; RLQ pain since 7 tonight w ith nausea and vomiting TECHNIQUE: Multiple sonographic images of the right lower quadrant were obtained with graded compress ion with grayscale and color Doppler imaging. FINDINGS: APPENDIX DEHYDRATOR NOTES: The appendix is not seen with ultrasound today due to overlying gas and patient shanell dy habitus. Linear and curved probes both attempted at patients area of concern IMPRESSION: Nonvisualization of the appendix in the right lower quadrant. This does not exclude diagnosis of acut e appendicitis. [facility], , 05/19/2024 1:30 AM
--- NOTE | 2024-05-19 01:33 | US ---
EXAMINATION TYPE: US transvaginal DATE OF EXAM: 05/19/2024 COMPARISON: NONE CLINICAL INDICATION: Female, 34 years old with history of RLQ pain, appy vs torsion vs ectopic?; Ellen ent states RLQ pain since 7 tonight TECHNIQUE: Transvaginal (TV). Transabdominal grayscale sonographic images of the pelvis were acquired. Transvaginal sonographic im ages were medically necessary to better assess the following anatomy: Ovaries Doppler imaging: Color Doppler Images were obtained. Spectral doppler images were obtained. FINDINGS: Date of LMP: 05/12/2024 EXAM MEASUREMENTS: Uterus: 7.5 x 5.5 x 5.2 cm Endometrial Stripe: 1.4 cm Right Ovary: 2.7 x 2.6 x 2.0 cm Left Ovary: 3.2 x 1.8 x 2.1 cm 1. Uterus: Retroverted wnl 2. Endometrium: wnl 3. Right Ovary: follicular changes, wnl 4. Left Ovary: follicular changes, wnl Spectral, color and waveform doppler imaging shows good arterial and venous flow within the ovaries ; 5. Bilateral Adnexa: wnl as best seen 6. Posterior cul-de-sac: wnl IMPRESSION: Unremarkable study. No right-sided adnexal masses are seen. [facility], , 05/19/2024 1:31 AM
[2024-05-19] MEDS: SODIUM CHLORIDE 0.9% 1,000 ML IV STA (01:35)
[2024-05-19 01:37] LABS: Basophils % (A) 0 %; Eosinophils # (A) 0.1 k/uL (0-0.7); Eosinophils % (A) 1 %; HCT 42.7 % (34.0-46.0); HGB 14.2 gm/dL (11.4-16.0); Lymphocytes # (A) 1.9 k/uL (1.0-4.8); Lymphocytes % (A) 21 %; MCH 28.9 pg (25.0-35.0); MCHC 33.3 g/dL (31.0-37.0); MCV 86.7 fL (80.0-100.0); Mean Platelet Volume 7.5; Monocytes # (A) 0.3 k/uL (0-1.0); Monocytes % (A) 4 %; Neutrophils # (A) 6.3 k/uL (1.3-7.7); Neutrophils % (A) 72 %; Platelet Count 257 k/uL (150-450); RBC 4.92 m/uL (3.80-5.40); RDW 13.9 % (11.5-15.5); WBC 8.7 k/uL (3.8-10.6)
[2024-05-19] MEDS: ONDANSETRON 4 MG/2 ML VIAL IVP STA ×2 (01:39→05:50)
[2024-05-19] MEDS: MORPHINE SULFATE 4 MG/ML SYRINGE IVP STA (01:40)
[2024-05-19] MEDS: KETOROLAC 15 MG/ML 1 ML VIAL IVP STA (01:42)
[2024-05-19 01:46] LABS: Partial Thromboplastin Time 29.3 sec (22.0-30.0); Prothrombin Time 10.6 sec (10.0-12.5)
[2024-05-19 02:06] LABS: ALT 20 U/L (4-34); AST 25 U/L (14-36); African American GFR (CKD) >90 (>60 ml/min/1.73 sqM); Albumin 4.8 g/dL (3.5-5.0); Alkaline Phosphatase 99 U/L (38-126); Amylase 59 U/L (30-110); Anion Gap 10 mmol/L; Blood Urea Nitrogen 15 mg/dL (7-17); Calcium 9.3 mg/dL (8.4-10.2); Carbon Dioxide 23 mmol/L (22-30); Chloride 104 mmol/L (98-107); Glucose 117 mg/dL (74-99); Lipase 86 U/L (23-300); Non-African American GFR(CKD) >90 (>60 ml/min/1.73 sqM); Sodium 137 mmol/L (137-145); Total Bilirubin 0.5 mg/dL (0.2-1.3); Total Protein 8.5 g/dL (6.3-8.2)
[2024-05-19 02:22] LABS: HCG,Quantitative Serum <2.4 mIU/mL
--- NOTE | 2024-05-19 02:59 | CT ---
EXAMINATION TYPE: CT abdomen pelvis w con DATE OF EXAM: 05/19/2024 HISTORY: Abdominal pain with nausea CT DLP: 1401.9mGycm Automated Exposure Control for Dose Reduction was Utilized. CONTRAST: CT scan of the abdomen and pelvis is performed with IV Contrast, patient injected with 100ml mL of Is ovue 300. COMPARISON: CT 2011. FINDINGS: LUNG BASES: No significant abnormality is appreciated. LIVER/GB: Liver is heterogeneously hypodense consistent with fatty infiltrative hepatocellular diseas e. No biliary dilatation PANCREAS: No significant abnormality is seen. SPLEEN: Splenomegaly at 14.7 cm long axis axial image 22 is redemonstrated. ADRENALS: No significant abnormality is seen. KIDNEYS: At least partially duplicated right-sided collecting system is redemonstrated. BOWEL: Appendix within normal limits for base of cecum in the right lower quadrant. No abnormal small or large bowel dilatation. UTERUS/ADNEXA: Retroflexed uterus. Symmetric normal-sized ovaries. LYMPH NODES: No greater than 1cm abdominal or pelvic lymph nodes are appreciated. OSSEOUS STRUCTURES: There is transitional type LVI vertebra which is sacralized on the left. OTHER: No significant additional abnormality is seen. IMPRESSION: No CT evidence for acute appendicitis. No acute findings seen to account for patient's sy mptoms. [facility], , 05/19/2024 2:57 AM
[2024-05-19] MEDS: FAMOTIDINE 20 MG/2 ML VIAL IV STA (03:47)
[2024-05-19] MEDS: MAG HYDROX/AL HYDROX/SIMETH 30 ML, HYOSCYAMINE ELIXIR 10 ML, LIDOCAINE VISCOUS 2% 10 ML PO STA (03:48)
[2024-05-19] MEDS: SUCRALFATE 1 GM TAB PO STA (03:50)
[2024-05-19] MEDS: HYDROmorphone 1 MG/ML 1 ML SYRINGE IVP STA (05:45)
[2024-05-19] MEDS ORDERED: ACETAMINOPHEN TAB 325 MG TAB PO PRN (06:23)
[2024-05-19] MEDS ORDERED: NALOXONE 0.4 MG/ML 1 ML VIAL IV PRN (06:23)
[2024-05-19] MEDS: DEXTROSE 5%-0.45% NACL 1,000 ML IV SCH (06:56)
[2024-05-19] MEDS: PANTOPRAZOLE 40 MG/10 ML VIAL IV SCH (09:02)
[2024-05-19] MEDS: KETOROLAC 15 MG/ML 1 ML VIAL IVP PRN (10:09)
[2024-05-19] MEDS: HYDROmorphone 0.5 MG/0.5 ML SYRINGE IVP PRN (10:10)
[2024-05-19] MEDS: ONDANSETRON 4 MG/2 ML VIAL IVP PRN (13:38)
--- NOTE | 2024-05-19 13:40 | P.GSHP ---
History of Present Illness H&P Date: 05/19/24 CHIEF COMPLAINT: Abdominal pain HISTORY OF PRESENT ILLNESS: This is a 34-year-old female who presented to the hospital with complaints of abdominal pain to the right of the umbilicus. Patient reports that the pain started yesterday and did not improve Tylenol. She also was having nausea and vomiting. She reports normal bowel movements. Denies any blood in the stools. She denies any recent traveling. She reports her and son have been sick with pneumonia and upper respiratory sympto ms. She denies any fever chills or sweats. She denies any prior abdominal surgeries. She did report some mild similar symptoms last week. Patient CT scan abdomen pelvis was unremarkable. Transvaginal ultrasound was also reported as normal. Patient reports on afternoon rounds that she is feeling better and is ready to try to eat. Patient seen and examined with Dr. De Los Santos PAST MEDICAL HISTORY: Asthma, thyroid disorder, anxiety and depression, hypothyroidism PAST SURGICAL HISTORY: Denies any abdominal surgery MEDICATIONS: See below ALLERGIES: See below SOCIAL HISTORY: No illicit drug use. REVIEW OF SYSTEMS: CONSTITUTIONAL: Denies fever or chills. HEENT: Denies blurred vision, vision changes, or eye pain. Denies hemoptysis CARDIOVASCULAR: Denies chest pain or pressure. RESPIRATORY: No shortness of breath. GASTROINTESTINAL: See HPI for pertinent findings HEMATOLOGIC: Denies bleeding disorders. GENITOURINARY: Denies any blood in urine or increased urinary frequency. SKIN: Denies pruitis. Denies rash. PHYSICAL EXAM: VITAL SIGNS: Reviewed GENERAL: Well-developed in no acute distress. HEENT: No sclera icterus. Extraocular movements grossly intact. Moist buccal mucosa. Head is atraumatic, normocephalic. No nasal drainage. ABDOMEN: Soft. Nondistended. Tenderness with palpation to the right side of the umbilicus. When palpating the left lower quadrant patient reports feeling sick discomfort on the right side of the abdomen. NEUROLOGIC: Alert and oriented. Cranial nerves II through XII grossly intact. LABORATORY DATA: WBC 8.7 Hgb 14.2 platelets 257 INR 1.0 Sodium 137 potassium is 4.0 creatinine 0.65 Lactic acid 1.3 LFTs normal Urinalysis negative for infection IMAGING: CT scan abdomen pelvis reports no CT evidence for acute appendicitis. No acute findings to account for patient's symptoms. Transvaginal ultrasound unremarkable study. No right-sided adnexal masses are seen Abdominal ultrasound nonvisualization of the appendix in the right lower quadrant. This does not exclude diagnosis for acute appendicitis ASSESSMENT: 1. Abdominal pain with nausea and vomiting. Likely due to a gastroenteritis. CT scan of the abdomen is negative for any acute findings PLAN: -Patient's symptoms have shown improvement. Will advance diet to regular -Continue to monitor. Possible discharge later this afternoon if tolerating diet. Physician Make Up Operator note has been reviewed by physician. Signing provider agrees with the documented findings, assessment, and plan of care. Past Medical History Past Medical History: Asthma, Thyroid Disorder Additional Past Medical History / Comment(s): Anxiety and depression, Hypothyroid (not currently on meds, states it's controlled at this time, but has been diagnosed with it in the past), sport induced asthma during school years. Vaginal x3, One miscarriage with susequent D&C. History of Any Multi-Drug Resistant Organisms: None Reported Past Surgical History: Orthopedic Surgery Additional Past Surgical History / Comment(s): lt knee arthroscopy and ACL repair, nose surgery Past Anesthesia/Blood Transfusion Reactions: No Reported Reaction, Family History of Problems w/ Anesthesia Additional Past Anesthesia/Blood Transfusion Reaction / Comment(s): dad-ponv Past Psychological History: Anxiety, Depression Smoking Status: Never smoker Past Alcohol Use History: Occasional Past Drug Use History: None Reported - Past Family History Mother Family Medical History: Hypertension Father Family Medical History: Hyperlipidemia Medications and Allergies Home Medications Medication Instructions Recorded Confirmed Type Ascorbic Acid [Vitamin C] 500 mg PO DAILY 05/19/24 05/19/24 History Cholecalciferol (Vitamin D3) 75 mcg PO DAILY 05/19/24 05/19/24 History [Vitamin D3 (3000 Iu)] Ferrous Sulfate [Feosol] 325 mg PO DAILY 05/19/24 05/19/24 History L.acidoph,Paracasei, B.lactis 1 cap PO HS 05/19/24 05/19/24 History [Probiotic] Magnesium Oxide [Mag-Ox] 400 mg PO HS 05/19/24 05/19/24 History Vitamin B Complex 1 cap PO DAILY 05/19/24 05/19/24 History Vitamin E (Dl,Tocopheryl Acet) 400 unit PO DAILY 05/19/24 05/19/24 History [Vitamin E (400 Iu = 180 mg)] Allergies Allergy/AdvReac Type Severity Reaction Status Date / Time No Known Allergies Allergy Verified 05/19/24 08:06 Surgical - Exam Vital Signs Temp Pulse Resp BP Pulse Ox 97.5 F L 72 18 139/99 97 05/19/24 00:16 05/19/24 00:16 05/19/24 00:16 05/19/24 00:16 05/19/24 00:16 Results - Labs 05/19/24 01:31 05/19/24 01:31 Abnormal Lab Results - Last 24 Hours (Table) 05/19/24 Range/Units 01:31 Glucose 117 H (74-99) mg/dL Total Protein 8.5 H (6.3-8.2) g/dL Diabetes panel 05/19/24 Range/Units 01:31 Sodium 137 (137-145) mmol/L Potassium 4.0 (3.5-5.1) mmol/L Chloride 104 (98-107) mmol/L Carbon Dioxide 23 (22-30) mmol/L BUN 15 (7-17) mg/dL Creatinine 0.65 (0.52-1.04) mg/dL Glucose 117 H (74-99) mg/dL Calcium 9.3 (8.4-10.2) mg/dL AST 25 (14-36) U/L ALT 20 (4-34) U/L Alkaline Phosphatase 99 (38-126) U/L Total Protein 8.5 H (6.3-8.2) g/dL Albumin 4.8 (3.5-5.0) g/dL Calcium panel 05/19/24 Range/Units 01:31 Calcium 9.3 (8.4-10.2) mg/dL Albumin 4.8 (3.5-5.0) g/dL Pituitary panel 05/19/24 Range/Units 01:31 Sodium 137 (137-145) mmol/L Potassium 4.0 (3.5-5.1) mmol/L Chloride 104 (98-107) mmol/L Carbon Dioxide 23 (22-30) mmol/L BUN 15 (7-17) mg/dL Creatinine 0.65 (0.52-1.04) mg/dL Glucose 117 H (74-99) mg/dL Calcium 9.3 (8.4-10.2) mg/dL Adrenal panel 05/19/24 Range/Units 01:31 Sodium 137 (137-145) mmol/L Potassium 4.0 (3.5-5.1) mmol/L Chloride 104 (98-107) mmol/L Carbon Dioxide 23 (22-30) mmol/L BUN 15 (7-17) mg/dL Creatinine 0.65 (0.52-1.04) mg/dL Glucose 117 H (74-99) mg/dL Calcium 9.3 (8.4-10.2) mg/dL Total Bilirubin 0.5 (0.2-1.3) mg/dL AST 25 (14-36) U/L ALT 20 (4-34) U/L Alkaline Phosphatase 99 (38-126) U/L Total Protein 8.5 H (6.3-8.2) g/dL Albumin 4.8 (3.5-5.0) g/dL
[2024-05-19] MEDS: IOPAMIDOL CONTRAST (ORAL USE) VIAL PO PRN (15:15)
--- NOTE | 2024-05-19 17:45 | CT ---
EXAMINATION TYPE: CT abdomen pelvis wo con DATE OF EXAM: 05/19/2024 5:21 PM COMPARISON: Same day CT abdomen/pelvis. CLINICAL INDICATION: Female, 34 years old with history of abdominal pain; right sided abdominal pain TECHNIQUE: Axial CT abdomen pelvis wo con;Sagittal and coronal reformats were created on a separate workstation. Oral contrast used: with Oral Contrast CT DLP: 1116.6 mGycm, Automated exposure control for dose reduction was used. FINDINGS: LOWER CHEST: Unremarkable ABDOMEN LIVER: Unremarkable GALLBLADDER AND BILE DUCTS: Unremarkable. PANCREAS: Unremarkable. SPLEEN: Mild thyromegaly. ADRENAL GLANDS: Unremarkable. KIDNEYS AND URETERS: No evidence of hydronephrosis or renal calculus. The ureters are unremarkable. Duplicated right renal collecting system, not well evaluated given lack of IV contrast. PELVIS BLADDER: No evidence for wall thickening or mass given limitations of exam. REPRODUCTIVE: Unremarkable. ABDOMEN & PELVIS STOMACH AND BOWEL: Stomach and duodenum are unremarkable No evidence of bowel obstruction. Appendix v isualized and appears unremarkable. PERITONEUM/RETROPERITONEUM: Nonspecific free fluid in the right lower quadrant, some of which demonst rates Hounsfield attenuation higher than that of simple fluid suggestive of blood products. Additiona l fluid in the posterior cul-de-sac of the pelvis. VASCULATURE: No evidence of aortic aneurysm. MUSCULOSKELETAL: No acute osseous abnormalities. Transitional lumbosacral anatomy with lumbarized S1 vertebral body. LYMPH NODES: No gross evidence for lymphadenopathy. SOFT TISSUE/ABDOMINAL WALL: Unremarkable IMPRESSION: Free fluid in the right lower quadrant of the abdomen and pelvis, some of which demonstrates higher d ensity than that of simple fluid, possibly reflecting blood products. Findings could reflect sequelae of recently ruptured ovarian follicle/cyst. [facility], , 05/19/2024 5:42 PM
[2024-05-20] MEDS: IBUPROFEN 600 MG TAB PO PRN (10:12)
--- NOTE | 2024-05-20 11:17 | P.PN ---
Subjective Progress Note Date: 05/20/24 Patient feels slightly better today. Her repeat CAT scan performed last night shows some fluid in the pelvis. The most patient most likely has had a ruptured ovarian cyst. On exam vital signs appear stable. Abdomen soft. Patient stable for discharge. Objective - Vital Signs Vital signs: Vital Signs Temp 98.3 F 05/20/24 07:10 Pulse 66 05/20/24 07:10 Resp 18 05/20/24 07:10 BP 110/73 05/20/24 07:10 Pulse Ox 98 05/20/24 07:10 FiO2 Intake & Output 05/19/24 05/20/24 05/20/24 18:59 06:59 18:59 Intake Total 540 1500 Balance 540 1500 Weight 97.522 kg Intake: Oral 540 1500 Other: Voiding Method Toilet # Voids 1 - Labs CBC & Chem 7: 05/19/24 01:31 05/19/24 01:31
[2024-05-20 12:36] VITALS: BP 117/76; PULSE 62; RESP 16; TEMP 97.5
== END 2024-05-20 12:36 | disposition home or self-care (01) ==
LOC: EC 00:15 → 5NMEDONC 06:27
PROVIDERS: ADMIT Surgery; ATTEND Surgery
DX: R10.31 Right lower quadrant pain (principal); R11.2 Nausea with vomiting, unspecified; E03.9 Hypothyroidism, unspecified; J45.909 Unspecified asthma, uncomplicated; E07.9 Disorder of thyroid, unspecified; F41.9 Anxiety disorder, unspecified; F32.A Depression, unspecified; Z82.49 Family history of ischemic heart disease and other diseases of the circulatory system
CPT/HCPCS: 96376 ×3; 96361 ×2; 96375 ×2; 96374; 99285; 36415; 80053; 82150; 83605; 83690; 85025; 85610; 85730; 81003; 84702; 93975; 76705; 76830; 74176; 74177; G0378 ×2; J2270; J2405; J3490; J1171 ×3; J1885 ×2; Q9967; J2470 ×2